=== PATIENT | female | born 1985 | race Hispanic/Latino ===

== ENCOUNTER 2018-02-23 22:00 | Emergency (ER) | payer BC ==
[2018-02-23 22:58] LABS: Urine Blood NEGATIVE (NEG); Urine Glucose NEGATIVE (NEG); Urine Protein TRACE (NEG); Urine Specific Gravity >1.030 (1.005-1.030)
[2018-02-23] MEDS ORDERED: IBUPROFEN 400 MG TAB ONE (23:27)
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
[2018-02-24 00:26] VITALS: TEMP 97.9
[2018-02-24 00:28] VITALS: BP 142/95; O2SAT 97
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
== END 2018-02-24 00:21 | disposition home or self-care (01) ==
LOC: ER 22:00
DX: M54.2 Cervicalgia (principal); V59.50XA Passenger in pick-up truck or van injured in collision with unspecified motor vehicles in traffic accident, initial encounter; Z72.0 Tobacco use; Z88.0 Allergy status to penicillin
CPT/HCPCS: 72040; 81003; 81025; 99284

== ENCOUNTER 2020-05-13 11:03 | Emergency (ER) | payer BC ==
[2020-05-13] MEDS ORDERED: NA CHLORIDE 0.9% 1,000 ML ONE (13:36)
[2020-05-13] MEDS ORDERED: ONDANSETRON 4 MG/2 ML VIAL ONE (13:36)
--- NOTE | 2020-05-13 13:46 | RAD REPORT ---
EXAM DESCRIPTION: RAD - Chest Single View - 05/13/2020 1:35 pm CLINICAL HISTORY: shortness of breath Chest pain. COMPARISON: Chest Single View dated 08/02/2017; CHEST PA AND LAT 2 VIEW dated 04/25/2012 FINDINGS: Portable technique limits examination quality. The lungs are grossly clear. The heart is normal in size. No displaced fractures. IMPRESSION: No acute intrathoracic process suspected.
[2020-05-13 13:50] LABS: Absolute Lymphocytes (CBC) 1.2 K/uL (0.7-4.9); Basophils % 0.6 % (0-1.3); Hematocrit 43.8 % (36.0-45.0); MPV 7.6 fL (7.6-11.3); RBC Red Blood Cell Count 5.27 M/uL (3.86-4.86)
[2020-05-13 14:12] LABS: Bilirubin Total 0.2 mg/dL (0.2-1.0); Potassium 3.5 mmol/L (3.5-5.1); Protein, Total 8.5 g/dL (6.4-8.2)
--- NOTE | 2020-05-13 15:31 | RAD REPORT ---
EXAM DESCRIPTION: CT - Chest For Pe Angio - 05/13/2020 3:19 pm CLINICAL HISTORY: Chest pain. chest pain, shortness of breath COMPARISON: No comparisons TECHNIQUE: CT angiogram of the pulmonary arteries was performed with MIP. All CT scans are performed using dose optimization technique as appropriate and may include automated exposure control or mA/KV adjustment according to patient size. FINDINGS: No evidence of pulmonary thromboembolism. Dilatation of the ascending aorta is present measuring 4.5 cm. The lungs are clear. No significant pericardial or pleural fluid. No concerning bony finding. IMPRESSION: No evidence of pulmonary thromboembolism. Ascending aortic aneurysm measuring 4.5 cm in transverse dimension without acute process seen.
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
--- NOTE | 2020-05-13 16:17 | ER ---
Nurse's Notes [facility] Name: Liz Winkler Age: 34 yrs Sex: Female : 1985 Arrival Date: 05/13/2020 Time: 11:05 Bed 16 Private MD: Jany Tristan K Diagnosis: Viral Respiratory Infection Presentation: 05/13 11:23 Chief complaint: Sinus pressure, chest congestion, subjective fever, and cough x 1 week hb Brother tested positive for Flu A. 11:24 Coronavirus screen: Patient reports shortness of breath or difficulty breathing. mask hb on pt. Ebola Screen: No symptoms or risks identified at this time. Initial Sepsis Screen: Does the patient meet any 2 criteria? No. Patient's initial sepsis screen is negative. Does the patient have a suspected source of infection? No. Patient's initial sepsis screen is negative. Risk Assessment: Do you want to hurt yourself or someone else? Patient reports no desire to harm self or others. Onset of symptoms was May 13, 2020. 11:24 Method Of Arrival: Wheelchair hb 11:24 Acuity: DINO 3 hb Historical: - Allergies: 11:34 PENICILLINS; hb - PMHx: 13:51 possibly pericarditis-unknown (swelling to lining of heart) (2013); toenail infection; hb - PSHx: 13:51 ectopic 2018; hb - Immunization history:: Adult Immunizations up to date. - Social history:: Smoking status: Patient denies any tobacco usage or history of. Screenin:15 Abuse screen: Denies threats or abuse. Denies injuries from another. Nutritional hb screening: No deficits noted. Tuberculosis screening: No symptoms or risk factors identified. Fall Risk None identified. Assessment: 13:25 General: Appears in no apparent distress. uncomfortable, well groomed, well developed, sv Behavior is calm, cooperative, appropriate for age. General: Reports chills for. Pain: Complains of pain in chest Pain currently is 4 out of 10 on a pain scale. Quality of pain is described as sharp, Is intermittent. Neuro: Level of Consciousness is awake, alert, obeys commands, Oriented to person, place, time, situation, Moves all extremities. Full function Gait is steady, Speech is normal. Respiratory: Airway is patent Respiratory effort is even, unlabored, Respiratory pattern is regular, symmetrical. Derm: Skin is intact, Skin is pink, warm \T\ dry. 13:30 Reassessment: COVID obtained. hb 15:00 Reassessment: Patient appears in no apparent distress at this time. No changes from sv previously documented assessment. Patient and/or family updated on plan of care and expected duration. Pain level reassessed. Patient is alert, oriented x 3, equal unlabored respirations, skin warm/dry/pink. 16:58 Reassessment: Patient appears in no apparent distress at this time. No changes from sv previously documented assessment. Patient and/or family updated on plan of care and expected duration. Pain level reassessed. Patient is alert, oriented x 3, equal unlabored respirations, skin warm/dry/pink. Vital Signs: 11:23 BP 131 / 98; Pulse 100; Resp 16; Temp 97.3; Pulse Ox 100% on R/A; Weight 74.84 kg; hb Height 5 ft. 2 in. (157.48 cm); Pain 4/10; 13:51 BP 113 / 89; Pulse 67; Resp 18; Pulse Ox 98% ; hb 14:43 BP 133 / 97; Pulse 70; Resp 18; Temp 97.9(O); Pulse Ox 100% on R/A; mh5 11:23 Body Mass Index 30.18 (74.84 kg, 157.48 cm) hb ED Course: 11:05 Patient arrived in ED. as 11:05 Jany Tristan MD is Private Physician. as 11:26 Triage completed. hb 11:34 Arm band placed on. hb 12:31 Ghada Jenkins RN is Primary Nurse. sv 12:34 Yordy Carbajal PA is PHCP. jmm 12:34 Juancarlos Toscano MD is Attending Physician. jm 13:04 EKG done, by automotive service technician. reviewed by Yordy BERRIOS. at1 13:15 Patient has correct armband on for positive identification. Bed in low position. Call hb light in reach. Pulse ox on. NIBP on. Door closed. Warm blanket given. Head of bed elevated. 13:15 First set of blood cultures drawn by me. hb 13:30 Second set of blood cultures drawn by me. Flu and/or RSV swab sent to lab. Strep swab hb sent to lab. Inserted saline lock: 20 gauge in left antecubital area, using aseptic technique. Blood collected. Flushed left antecubital with 5 ml normal saline. 13:36 Chest Single View XRAY In Process Unspecified. EDMS 14:47 Throat Culture Sent. sv 15:30 CT Chest For PE Angio In Process Unspecified. EDMS 16:16 Jany Tristan MD is Referral Physician. [facility] 16:50 Health Dept notified/ PUI # [id number]/ Nemo in lab notified. eb 16:58 No provider procedures requiring assistance completed. IV discontinued, intact, sv bleeding controlled, No redness/swelling at site. Pressure dressing applied. 19:10 Primary Nurse role handed off by Ghada Jenkins RN sv Administered Medications: 13:35 Drug: NS 0.9% 1000 ml Route: IV; Rate: 1000 ml; Site: left antecubital; hb 14:30 Follow up: Response: No adverse reaction; IV Status: Completed infusion; IV Intake: sv 1000ml 13:35 Drug: Zofran (Ondansetron) 4 mg Route: IVP; Site: left antecubital; hb 14:00 Follow up: Response: No adverse reaction sv Intake: 14:30 IV: 1000ml; Total: 1000ml. sv Outcome: 16:16 Discharge ordered by . [facility] 16:59 Discharged to home ambulatory. sv 16:59 Condition: stable 16:59 Discharge instructions given to patient, Instructed on discharge instructions, follow up and referral plans. continue to quarantine until results are obtained. Demonstrated understanding of instructions, follow-up care. 16:59 Patient left the ED. sv Addendum: 05/15/2020 17:00 Addendum: Other Pt informed of positive COVID-[address] Wright. a a5 Signatures: Dispatcher [employer] EDMS Ghada Jenkins, GURPREET RN Yordy Webber PA PA jmm Martinez, Amelia as Calderon, Audri RN RN [email or web address] Eulalia Barillas, disability advocate EKG Tat1 [place] Smart RN RN hb Martinez, Maria Jeny Robertson Corrections: (The following items were deleted from the chart) 05/13 11:26 11:22 Chief complaint: hb hb 11:26 11:22 Chief complaint: SOB x 2 months, worse at night. Daughter reports she can't sleep hb and she is due for a heart cath, does not feel like she is safe at night due to breathing difficulty. Chief complaint: SOB x 2 months, worse at night. Daughter reports she can't sleep and she is due for a heart cath, does not feel like she is safe at night due to breathing difficulty. hb 11:26 11:24 BP 147 / 55; Pulse 60bpm; Resp 16bpm; Pulse Ox 96% RA; Temp 97.4F; 64.86 kg; hb Height 5 ft. 3 in.; BMI: 25.3; Pain 0/10; hb
[2020-05-13 17:09] VITALS: BP 133/97; TEMP 97.9; O2SAT 100
[2020-05-13 19:01] LABS: Urine Blood 2+ (NEG); Urine Glucose NEGATIVE (NEG); Urine Protein NEGATIVE (NEG)
--- NOTE | 2020-05-14 10:56 | EKG ---
Test Date: 2020-05-13 Test Time: 12:44:32 Blade Sharpener: WOLF MEASUREMENT RESULTS: Intervals: Rate: 81 VA: 146 QRSD: 76 QT: 372 QTc: 432 [place]: P: 51 VA: 146 QRS: 19 T: 44 INTERPRETIVE STATEMENTS: Normal sinus rhythm Normal ECG Compared to ECG 03/15/2019 11:02:53 Sinus bradycardia no longer present Sinus arrhythmia no longer present Electronically Signed On 05-14-20 10:56:02 CDT by Mode Curtis
== END 2020-05-13 16:59 | disposition home or self-care (01) ==
LOC: ER 11:03
DX: U07.1 COVID-19 (principal); J98.8 Other specified respiratory disorders; Z88.0 Allergy status to penicillin
CPT/HCPCS: 96361; 93005; 87040 ×2; 87070; 85025; 36415; 81025; 87081; 83605; 81003; 84484; 80053; 84145; 87804 ×2; 71275; 71045; 96374; 99284; Q9967; J7030; J2405

== ENCOUNTER 2021-02-04 18:27 | Emergency (ER) | payer BC, SELFPAY ==
[2021-02-04] MEDS ORDERED: LABETALOL 20 MG/4ML SYRINGE IV ONE (20:46)
[2021-02-04 20:53] LABS: Absolute Lymphocytes (CBC) 2.1 K/uL (0.7-4.9); Basophils % 0.9 % (0-1.3); Hematocrit 39.2 % (36.0-45.0); Lymphocytes % 24.1 % (15.3-44.8); RBC Red Blood Cell Count 4.69 M/uL (3.86-4.86)
[2021-02-04 21:01] LABS: Protime INR 0.94
--- NOTE | 2021-02-04 21:08 | RAD REPORT ---
EXAM DESCRIPTION: Charo Single View02/04/2021 8:27 pm CLINICAL HISTORY: Chest pain COMPARISON: April 2020 FINDINGS: The lungs appear clear of acute infiltrate. The heart is normal size . Ascending thoracic aortic aneurysm is without obvious change
[2021-02-04 21:22] LABS: ALT/SGPT 23 U/L (12-78); AST/SGOT 15 U/L (15-37); Albumin 3.8 g/dL (3.4-5.0); Alkaline Phosphatase 84 U/L (45-117); BUN Blood Urea Nitrogen 12 mg/dL (7-18); Bicarbonate 26 mmol/L (21-32); Bilirubin Direct < 0.1 mg/dL (0-0.2); Bilirubin Total 0.2 mg/dL (0.2-1.0); Glucose Level 99 mg/dL (74-106); Magnesium 2.3 mg/dL (1.8-2.4); NT PRO-BNP 24 pg/mL (<125); Potassium 4.1 mmol/L (3.5-5.1); Sodium Level 142 mmol/L (136-145); Troponin (Emerg Dept Use Only) < 0.02 ng/mL (0.0-0.045)
[2021-02-04] MEDS ORDERED: HYDRALAZINE HCL 20 MG/ML VIAL ONE (23:28)
--- NOTE | 2021-02-05 00:27 | ER ---
Nurse's Notes [facility] Name: Liz Winkler Age: 35 yrs Sex: Female : 1985 Arrival Date: 02/04/2021 Time: 18:29 Bed 6 Private MD: Diagnosis: Aneurysm of aorta in diseases classified elsewhere;Hypertesesive urgency Presentation: 02/04 18:38 Chief complaint: Patient states: i feel a lot of pressure on my chest it has been going tw2 on and off for a couple of weeks, i have an aortic aneurysm, i see Dr. Macias, i am under a great deal of stress and i think it is triggering my chest pressure, when it happens i feel a bit sob and agitated and dizzy like i feel tightening in my neck and shoulders. Coronavirus screen: At this time, the client does not indicate any symptoms associated with coronavirus-19. Ebola Screen: No symptoms or risks identified at this time. Initial Sepsis Screen: Does the patient meet any 2 criteria? No. Patient's initial sepsis screen is negative. Does the patient have a suspected source of infection? No. Patient's initial sepsis screen is negative. Risk Assessment: Do you want to hurt yourself or someone else? Patient reports no desire to harm self or others. Onset of symptoms was February 04, 2021. 18:38 Method Of Arrival: Ambulatory tw2 18:38 Acuity: DINO 2 tw2 Triage Assessment: 18:41 General: Appears in no apparent distress. Behavior is anxious. Pain: Complains of pain tw2 in chest. Cardiovascular: Reports chest pain, shortness of breath. Historical: - Allergies: 18:41 PENICILLINS; tw2 - Home Meds: 18:41 Bactrim DS Oral [Active]; tw2 - PMHx: 18:41 possibly pericarditis-unknown (swelling to lining of heart) (2013); toenail infection; tw2 - PSHx: 18:41 ectopic 2018; tw2 - Immunization history:: Adult Immunizations. - Social history:: Smoking status: Patient reports the use of cigarette tobacco products, "couple of cigarettes ". Screenin:37 Abuse screen: Denies threats or abuse. Nutritional screening: No deficits noted. ea Tuberculosis screening: No symptoms or risk factors identified. Fall Risk IV access (20 points). Assessment: 20:15 General: Appears uncomfortable, Behavior is appropriate for age. Pain: Complains of ea pain in anterior aspect of left upper chest and left breast Pain does not radiate. Neuro: Level of Consciousness is awake, alert, obeys commands, Oriented to person, place, time. Cardiovascular: Patient's skin is warm and dry. Respiratory: Airway is patent Respiratory effort is even, unlabored, Respiratory pattern is regular, symmetrical. Derm: Skin is pink, warm \\T\\ dry. 21:35 Reassessment: Pt taken to CT. ea 22:36 Reassessment: Patient appears in no apparent distress at this time. Patient and/or rr5 family updated on plan of care and expected duration. Pain level reassessed. Patient is alert, oriented x 3, equal unlabored respirations, skin warm/dry/pink. 23:17 Reassessment: Patient and/or family updated on plan of care and expected duration. Pain ea level reassessed. Patient is alert, oriented x 3, equal unlabored respirations, skin warm/dry/pink. Awaiting for repeat trop results. Vital Signs: 18:38 BP 130 / 98; Pulse 81; Resp 17; Temp 97.8(TE); Pulse Ox 97% on R/A; Weight 77.11 kg tw2 (R); Height 5 ft. 2 in. (157.48 cm); Pain 8/10; 20:18 BP 185 / 116; Pulse 71; Resp 18; Pulse Ox 98% ; ea 21:00 BP 146 / 98; Pulse 61; Resp 18; Pulse Ox 98% ; ea 22:36 BP 149 / 92; Pulse 62; Resp 16; Pulse Ox 98% ; rr5 23:18 BP 159 / 104; Pulse 63; Resp 20; Pulse Ox 98% ; ea 03 00:30 BP 124 / 98; Pulse 60; Resp 19; Temp 97.9; Pulse Ox 98% ; ea 02/04 18:38 Body Mass Index 31.09 (77.11 kg, 157.48 cm) tw2 ED Course: 02/04 18:29 Patient arrived in ED. am2 18:36 Arm band placed on. tw2 18:41 Triage completed. tw2 18:42 Patient maintains SpO2 saturation greater than 95% on room air. tw2 19:55 Arun Zaman MD is Attending Physician. tw4 20:15 Christin Hunter, RN is Primary Nurse. ea 20:15 Inserted saline lock: 20 gauge in right antecubital area, using aseptic technique. ea Blood collected. 20:37 Patient has correct armband on for positive identification. Bed in low position. Call ea light in reach. Side rails up X2. fountain worker on. 20:37 No provider procedures requiring assistance completed. ea 23:13 CT Aorta for Dissection In Process Unspecified. EDMS 02/05 00:25 Adalgisa Ochoa MD is Referral Physician. tw4 00:25 Ilya Barrera MD is Referral Physician. tw4 00:25 Mode Curtis MD is Referral Physician. tw4 00:40 IV discontinued, intact, bleeding controlled, No redness/swelling at site. Pressure ea dressing applied. Administered Medications: 02/04 20:36 Drug: Labetalol 10 mg Route: IVP; Infused Over: 2 mins; Site: right antecubital; ea 22:45 Follow up: Response: No adverse reaction ea 23:17 Drug: hydrALAZINE 10 mg Route: IV; Rate: bolus; Site: right antecubital; ea 02/05 00:40 Follow up: IV Status: Completed infusion ea Outcome: 00:26 Discharge ordered by . tw4 00:41 Discharged to home ambulatory. ea 00:41 Condition: stable 00:41 Discharge instructions given to patient, Instructed on discharge instructions, follow up and referral plans. Demonstrated understanding of instructions, follow-up care. 00:44 Patient left the ED. ea Signatures: Dispatcher [employer] EDNV Shikha Tam RN RN tw2 Eulalia Kevin am2 Christin Hunter RN RN ea Wadley, Terrence, MD MD tw4 Suman Jesus RN RN rr5 Corrections: (The following items were deleted from the chart) 02/04 19:17 18:38 Pulse 81bpm; Resp 17bpm; Pulse Ox 97% RA; Temp 97.8F Temporal; 77.11 kg Reported; tw2 Height 5 ft. 2 in.; BMI: 31.0; Pain 8/10; tw2
--- NOTE | 2021-02-05 00:27 | EDPHYS ---
Physician Documentation [facility] Name: Liz Winkler Age: 35 yrs Sex: Female : 1985 Arrival Date: 02/04/2021 Time: 18:29 Bed 6 Private MD: ED Physician Arun Zaman HPI: 02/04 20:22 This 35 yrs old Female presents to ER via Ambulatory with complaints of Chest tw4 Pain, Blurred Vision. 20:22 The patient or guardian reports chest pain that is located primarily in the epigastric tw4 area, anterior chest wall. The pain does not radiate. Historical: - Allergies: 18:41 PENICILLINS; tw2 - Home Meds: 18:41 Bactrim DS Oral [Active]; tw2 - PMHx: 18:41 possibly pericarditis-unknown (swelling to lining of heart) (2013); toenail infection; tw2 - PSHx: 18:41 ectopic 2018; tw2 - Immunization history:: Adult Immunizations. - Social history:: Smoking status: Patient reports the use of cigarette tobacco products, "couple of cigarettes ". ROS: 22:05 Constitutional: Negative for fever, chills, and weight loss, Eyes: Negative for injury, tw4 pain, redness, and discharge, Respiratory: Negative for shortness of breath, cough, wheezing, and pleuritic chest pain, Abdomen/GI: Negative for abdominal pain, nausea, vomiting, diarrhea, and constipation, Back: Negative for injury and pain, MS/Extremity: Negative for injury and deformity, Skin: Negative for injury, rash, and discoloration, Neuro: Negative for headache, weakness, numbness, tingling, and seizure. 22:05 Cardiovascular: Positive for chest pain, Negative for edema, orthopnea, palpitations, paroxysmal nocturnal dyspnea. Exam: 22:05 Constitutional: This is a well developed, well nourished patient who is awake, alert, tw4 and in no acute distress. Head/Face: Normocephalic, atraumatic. Chest/axilla: Normal chest wall appearance and motion. Nontender with no deformity. No lesions are appreciated. Cardiovascular: Regular rate and rhythm with a normal S1 and S2. No gallops, murmurs, or rubs. Normal PMI, no JVD. No pulse deficits. Respiratory: Lungs have equal breath sounds bilaterally, clear to auscultation and percussion. No rales, rhonchi or wheezes noted. No increased work of breathing, no retractions or nasal flaring. Abdomen/GI: Soft, non-tender, with normal bowel sounds. No distension or tympany. No guarding or rebound. No evidence of tenderness throughout. Back: No spinal tenderness. No costovertebral tenderness. Full range of motion. Skin: Warm, dry with normal turgor. Normal color with no rashes, no lesions, and no evidence of cellulitis. MS/ Extremity: Pulses equal, no cyanosis. Neurovascular intact. Full, normal range of motion. Neuro: Awake and alert, GCS 15, oriented to person, place, time, and situation. Cranial nerves II-XII grossly intact. Motor strength 5/5 in all extremities. Sensory grossly intact. Cerebellar exam normal. Normal gait. Vital Signs: 18:38 BP 130 / 98; Pulse 81; Resp 17; Temp 97.8(TE); Pulse Ox 97% on R/A; Weight 77.11 kg tw2 (R); Height 5 ft. 2 in. (157.48 cm); Pain 8/10; 20:18 BP 185 / 116; Pulse 71; Resp 18; Pulse Ox 98% ; ea 21:00 BP 146 / 98; Pulse 61; Resp 18; Pulse Ox 98% ; ea 22:36 BP 149 / 92; Pulse 62; Resp 16; Pulse Ox 98% ; rr5 23:18 BP 159 / 104; Pulse 63; Resp 20; Pulse Ox 98% ; ea 02/05 00:30 BP 124 / 98; Pulse 60; Resp 19; Temp 97.9; Pulse Ox 98% ; ea 02/04 18:38 Body Mass Index 31.09 (77.11 kg, 157.48 cm) tw2 MDM: 02/04 19:55 Patient medically screened. tw4 02/05 04:54 Data reviewed: vital signs, nurses notes, old medical records, lab test result(s), tw4 cardiac enzymes, CBC, electrolytes, hepatic panel, radiologic studies, CT scan, plain films. Data interpreted: Pulse oximetry: Interpretation:. Counseling: I had a detailed discussion with the patient and/or guardian regarding: the historical points, exam findings, and any diagnostic results supporting the discharge/admit diagnosis, lab results, radiology results, the need for outpatient follow up, a sports manager, cardiothoracic. Special discussion: I discussed with the patient/guardian in detail that at this point there is no indication for admission to the hospital. It is understood, however, that if the symptoms persist or worsen the patient needs to return immediately for re-evaluation. 02/04 19:24 Order name: Basic Metabolic Panel 02/04 19:24 Order name: CBC with Diff 02/04 19:24 Order name: LFT's 02/04 19:24 Order name: Magnesium 02/04 19:24 Order name: NT PRO-BNP 02/04 19:24 Order name: PT-INR 02/04 19:24 Order name: Troponin (emerg Dept Use Only) 02/04 21:01 Order name: CBC with Automated Diff; Complete Time: 22:02 EDMS 02/04 22:03 Interpretation: Within normal limits. 02/04 21:06 Order name: Protime (+INR); Complete Time: 22:02 EDMS 02/04 22:03 Interpretation: Within normal limits: PT 10.8. 02/04 21:23 Order name: Basic Metabolic Panel; Complete Time: 22:02 EDMS 02/04 22:02 Interpretation: Normal except: CL 110; GFR 79. 02/04 21:23 Order name: Liver (Hepatic) Function; Complete Time: 22:02 EDMS 02/04 22:03 Interpretation: Normal except: A/G 0.9; GLOB 4.2. 02/04 21:23 Order name: Troponin (Emerg Dept Use Only); Complete Time: 22:02 EDMS 02/04 22:03 Interpretation: Within normal limits: TROPED < 0.02. 02/04 21:23 Order name: NT PRO-BNP; Complete Time: 22:02 EDMS 02/04 22:03 Interpretation: Within normal limits: NT PRO-BNP 24. 02/04 21:23 Order name: Magnesium; Complete Time: 22:02 EDMS 02/04 22:04 Interpretation: Within normal limits: MG 2.3. 02/04 19:24 Order name: XRAY Chest (1 view) 02/04 19:24 Order name: EKG; Complete Time: 19:26 tw4 02/04 19:24 Order name: Cardiac monitoring; Complete Time: 20:15 tw4 02/04 19:24 Order name: EKG - Nurse/Tech; Complete Time: 20:15 02/04 19:24 Order name: IV Saline Lock; Complete Time: 20:15 tw4 02/04 19:24 Order name: Labs collected and sent; Complete Time: 20:19 tw4 02/04 19:24 Order name: O2 Per Protocol; Complete Time: 20:19 tw4 02/04 19:24 Order name: O2 Sat Monitoring; Complete Time: 20:19 tw4 02/04 20:08 Order name: CT Aorta for Dissection tw02/04 21:09 Order name: RAD; Complete Time: 22:02 EDMS 02/04 22:03 Interpretation: No acute disease except. tw02/04 22:54 Order name: Troponin (emerg Dept Use Only) 02/04 23:22 Order name: SARS-COV-2 RT PCR EDMS EC/10 22:05 Rate is 72 beats/min. Rhythm is regular, Normal Sinus Rhythm. QRS [place] is Normal. [place] tw4 interval is normal. QRS interval is normal. QT interval is normal. No Q waves. T waves are Flattened in lead III. No ST changes noted. Clinical impression: NSR w/ Non-specific ST/T Changes. Interpreted by me. Reviewed by me. Administered Medications: 20:36 Drug: Labetalol 10 mg Route: IVP; Infused Over: 2 mins; Site: right antecubital; ea 22:45 Follow up: Response: No adverse reaction ea 23:17 Drug: hydrALAZINE 10 mg Route: IV; Rate: bolus; Site: right antecubital; ea 02/05 00:40 Follow up: IV Status: Completed infusion ea Disposition: 02/05/21 00:26 Discharged to Home. Impression: Aneurysm of aorta in diseases classified elsewhere, Hypertesesive urgency. - Condition is Stable. - Discharge Instructions: Abdominal Aortic Aneurysm, Hypertension. - Medication Reconciliation Form, Thank You Letter, Antibiotic Education, Prescription Opioid Use form. - Follow up: Private Physician; When: Upon discharge from the Emergency Department; Reason: Recheck today's complaints, Continuance of care, Re-evaluation by your physician. Follow up: Adalgisa Ochoa MD; When: Upon discharge from the Emergency Department; Reason: Recheck today's complaints, Continuance of care, Re-evaluation by your physician. Follow up: Ilya Barrera MD; When: Upon discharge from the Emergency Department; Reason: Recheck today's complaints, Continuance of care, Re-evaluation by your physician. Follow up: Mode Curtis MD; When: Upon discharge from the Emergency Department; Reason: Recheck today's complaints, Continuance of care, Re-evaluation by your physician. - Problem is an ongoing problem. - Symptoms are unchanged. Signatures: Dispatcher [employer] EDShikha Miller RN RN tw2 Christin Hunter RN RN Arun Hernandez MD MD tw4 Corrections: (The following items were deleted from the chart) 00:44 00:26 02/05/2021 00:26 Discharged to Home. Impression: Aneurysm of aorta in diseases ea classified elsewhere; Hypertesesive urgency. Condition is Stable. Forms are Medication Reconciliation Form, Thank You Letter, Antibiotic Education, Prescription Opioid Use. Follow up: Private Physician; When: Upon discharge from the Emergency Department; Reason: Recheck today's complaints, Continuance of care, Re-evaluation by your physician. Follow up: Adalgisa Ochoa; When: Upon discharge from the Emergency Department; Reason: Recheck today's complaints, Continuance of care, Re-evaluation by your physician. Follow up: Ilya Barrera; When: Upon discharge from the Emergency Department; Reason: Recheck today's complaints, Continuance of care, Re-evaluation by your physician. Follow up: Mode Curtis; When: Upon discharge from the Emergency Department; Reason: Recheck today's complaints, Continuance of care, Re-evaluation by your physician. Problem is an ongoing problem. Symptoms are unchanged. tw4
[2021-02-05 02:58] VITALS: TEMP 97.8
[2021-02-05 02:59] VITALS: O2SAT 98
[2021-02-05 03:19] VITALS: BP 159/104
--- NOTE | 2021-02-05 05:12 | EKG ---
Test Date: 2021-02-04 Test Time: 18:47:05 Sales Warehouse Driver: DEISY MEASUREMENT RESULTS: Intervals: Rate: 72 IA: 144 QRSD: 70 QT: 390 QTc: 427 [place]: P: 37 IA: 144 QRS: 8 T: 28 INTERPRETIVE STATEMENTS: Normal sinus rhythm Possible Anterior infarct, age undetermined Abnormal ECG Compared to ECG 05/13/2020 12:44:32 Myocardial infarct finding now present Electronically Signed On 02-05-21 05:11:10 AIRPORT LOCATION MANAGER by Mode Curtis
--- NOTE | 2021-02-05 10:45 | RAD REPORT ---
EXAM DESCRIPTION: CT - Angio Aorta For Dissection - 02/05/2021 6:53 am RadLex: CT CHEST ABDOMEN PELVIS ANGIOGRAPHY WITH IV CONTRAST CLINICAL HISTORY: Hx of aortic aneurysm. COMPARISON: CT of the abdomen and pelvis from September 11, 2014. CTA of the chest from May 13, 2020. TECHNIQUE: CTA of the chest, abdomen, and pelvis was performed following intravenous administration of iodinated contrast. Oral contrast was not administered. Axial, coronal, and sagittal soft tissue w indow reconstructions were created and sent to PACS. 3D reconstructions were created on an independent workstation and sent to PACS for evaluation. This exam was performed according to our departmental dose-optimization program, which includes autom ated exposure control, adjustment of the mA and/or kV according to patient size and/or use of iterati ve reconstruction technique. FINDINGS: Vascular: Mild aneurysmal dilation of the ascending aorta, including at the sinotubular ju nction. The mid ascending aorta measures up to 4 cm in diameter, on this nongated exam. This is not s ignificantly changed from the prior exam. Normal caliber aortic arch and descending thoracic aorta. N ormal caliber abdominal aorta. No dissection or flow-limiting stenosis. No central pulmonary embolism . The major visceral vessels are patent, with no flow limiting stenosis. Single bilateral renal arter ies. Lungs and pleura: No pulmonary consolidation. No pleural effusion. No pneumothorax. Mediastinum and neck: No mediastinal lymphadenopathy identified by CT size criteria. Unremarkable rosalie earance of the thyroid gland. Cardiac: No cardiomegaly or pericardial effusion. Hepatobiliary: No concerning hepatic lesion identified. The hepatic and portal veins are patent. The gallbladder is unremarkable. No biliary ductal dilatation. Pancreas: Unremarkable. Spleen: Unremarkable. Gastrointestinal: No evidence of bowel obstruction or perienteric inflammation. The appendix is johnathan l. Adrenals: No abnormality identified in either adrenal gland. Renal: No concerning parenchymal abnormality in either kidney. No hydronephrosis or urolithiasis. Bladder/Reproductive: Unremarkable appearance of the urinary bladder by CT technique. Left ovarian co rpus luteum cyst. Lymphatics: No lymphadenopathy identified by CT size criteria. Musculoskeletal: No concerning osseous lesion identified. Fluid / peritoneum: No significant free fluid. No free intraperitoneal air identified. IMPRESSION: 1. No significant interval change in the mild ascending aortic aneurysm since April 0. 2. No evidence of aortic dissection. 3. No abdominal aortic aneurysm. 4. Clear lungs. No concerning abdominopelvic abnormality. Electronically signed by: Lindsay Cordero MD 02/04/2021 10:08 PM MANAGER SOLAR Due to temporary technical issues with the PACS/Fluency reporting system, reports are being signed by the in house radiologist without review as a courtesy to ensure prompt reporting. The interpreting r adiologist is fully responsible for the content of the report.
== END 2021-02-05 00:44 | disposition home or self-care (01) ==
LOC: ER 18:27
DX: I71.4 Abdominal aortic aneurysm, without rupture (principal); I16.0 Hypertensive urgency; F17.210 Nicotine dependence, cigarettes, uncomplicated; Z20.822 Contact with and (suspected) exposure to COVID-19; Z88.0 Allergy status to penicillin
CPT/HCPCS: 36415; 71045; 71275; 74175; 80048; 80076; 83735; 83880; 84484; 85025; 85610; 93005; 96365; 96375; 99285; J0360; Q9967; U0003

== ENCOUNTER 2022-06-07 20:06 | Observation (INO) | payer OTHER, SELFPAY ==
[2022-06-07 22:38] LABS: Urine Blood Negative (Negative); Urine Glucose Negative (Negative); Urine Protein Negative (Negative); Urine Specific Gravity 1.025 (1.005-1.030); Urine pH 5.5 (5.0-7.0)
[2022-06-07 22:58] LABS: Absolute Lymphocytes (CBC) 2.7 K/uL (0.7-4.9); Hematocrit 39.7 % (36.0-45.0); MCV 82.8 fL (80-100); MPV 7.2 fL (7.6-11.3); RBC Red Blood Cell Count 4.79 M/uL (3.86-4.86)
[2022-06-07 23:05] LABS: Urine Specific Gravity/Preg 1.025 (1.005-1.030)
[2022-06-07 23:15] LABS: Potassium 3.4 mmol/L (3.5-5.1); Troponin High Sensitivity 3.3 pg/mL (<58.9)
[2022-06-08] MEDS ORDERED: MORPHINE 2 MG/ML SYR ONE (01:17)
[2022-06-08] MEDS ORDERED: ONDANSETRON 4 MG/2 ML VIAL ONE (01:17)
[2022-06-08] MEDS ORDERED: NA CHLORIDE 0.9% 1,000 ML ONE (05:59)
[2022-06-08] MEDS ORDERED: ASPIRIN 81 MG CHEWABLE TABLET ONE (05:59)
--- NOTE | 2022-06-08 06:00 | EDPHYS ---
Physician Documentation [facility] Name: Liz Winkler Age: 36 yrs Sex: Female : 1985 Arrival Date: 06/07/2022 Time: 20:16 Bed 6 Private MD: ED Physician Juancarlos Toscano HPI: 06/08 05:50 This 36 yrs old Female presents to ER via Ambulatory with complaints of Chest laurence Pain, Low Blood Pressure, High Heart Rate. 05:50 The patient or guardian reports chest pain that is located primarily in the substernal laurence area. The pain does not radiate. Associated signs and symptoms: Pertinent positives: shortness of breath. The chest pain is described as a heaviness. Duration: The patient or guardian reports a single episode, that is still ongoing. Modifying factors: The symptoms are alleviated by nothing. the symptoms are aggravated by nothing. Severity of pain: At its worst the pain was moderate in the emergency department the pain is unchanged. The patient has not experienced similar symptoms in the past. 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 - Social history:: Smoking status: Patient/guardian denies using tobacco, Smoking status: Patient reports the use of cigarette tobacco products, unknown amount. - Family history:: not pertinent. ROS: 06/08 05:50 Constitutional: Negative for fever, chills, and weight loss, Eyes: Negative for injury, laurence pain, redness, and discharge, ENT: Negative for injury, pain, and discharge, Neck: Negative for injury, pain, and swelling, Respiratory: Negative for shortness of breath, cough, wheezing, and pleuritic chest pain, Abdomen/GI: Negative for abdominal pain, nausea, vomiting, diarrhea, and constipation, Back: Negative for injury and pain, : Negative for injury, bleeding, discharge, and swelling, MS/Extremity: Negative for injury and deformity, Skin: Negative for injury, rash, and discoloration, Neuro: Negative for headache, weakness, numbness, tingling, and seizure, Psych: Negative for depression, anxiety, suicide ideation, homicidal ideation, and hallucinations, Allergy/Immunology: Negative for hives, rash, and allergies, Endocrine: Negative for neck swelling, polydipsia, polyuria, polyphagia, and marked weight changes, Hematologic/Lymphatic: Negative for swollen nodes, abnormal bleeding, and unusual bruising. Cardiovascular: Positive for chest pain, of the chest. Exam: 05:50 Constitutional: This is a well developed, well nourished patient who is awake, alert, laurence and in no acute distress. Head/Face: Normocephalic, atraumatic. Eyes: Pupils equal round and reactive to light, extra-ocular motions intact. Lids and lashes normal. Conjunctiva and sclera are non-icteric and not injected. Cornea within normal limits. Periorbital areas with no swelling, redness, or edema. ENT: Nares patent. No nasal discharge, no septal abnormalities noted. Tympanic membranes are normal and external auditory canals are clear. Oropharynx with no redness, swelling, or masses, exudates, or evidence of obstruction, uvula midline. Mucous membranes moist. Neck: Trachea midline, no thyromegaly or masses palpated, and no cervical lymphadenopathy. Supple, full range of motion without nuchal rigidity, or vertebral point tenderness. No Meningismus. Chest/axilla: Normal chest wall appearance and motion. Nontender with no deformity. No lesions are appreciated. Cardiovascular: Regular rate and rhythm with a normal S1 and S2. No gallops, murmurs, or rubs. Normal PMI, no JVD. No pulse deficits. Respiratory: Lungs have equal breath sounds bilaterally, clear to auscultation and percussion. No rales, rhonchi or wheezes noted. No increased work of breathing, no retractions or nasal flaring. Abdomen/GI: Soft, non-tender, with normal bowel sounds. No distension or tympany. No guarding or rebound. No evidence of tenderness throughout. Back: No spinal tenderness. No costovertebral tenderness. Full range of motion. Skin: Warm, dry with normal turgor. Normal color with no rashes, no lesions, and no evidence of cellulitis. MS/ Extremity: Pulses equal, no cyanosis. Neurovascular intact. Full, normal range of motion. Neuro: Awake and alert, GCS 15, oriented to person, place, time, and situation. Cranial nerves II-XII grossly intact. Motor strength 5/5 in all extremities. Sensory grossly intact. Cerebellar exam normal. Normal gait. Psych: Awake, alert, with orientation to person, place and time. Behavior, mood, and affect are within normal limits. 05:50 Musculoskeletal/extremity: Extremities: all appear grossly normal, with no appreciated pain with palpation, ROM: no acute changes, Circulation is intact in all extremities. Sensation intact. Compartment Syndrome exam of affected extremity: is normal. DVT Exam: No signs of deep vein thrombosis. no pain, no swelling, no tenderness, negative Homans' sign noted on exam, no appreciated bluish discoloration, no erythema, no increased warmth. 06:00 ECG was reviewed by the Attending Physician. [facility] Vital Signs: 06/07 22:14 BP 122 / 86; Pulse 69; Resp 18; Temp 97.6; Pulse Ox 100% ; Weight 72.57 kg; Height 5 kd3 ft. 2 in. (157.48 cm); Pain 8/10; 06/08 01:39 Pain 4/10; ke1 02:15 BP 102 / 62; Pulse 54; Resp 15; Pulse Ox 97% on R/A; Pain 2/10; ke1 03:15 BP 105 / 79; Pulse 50; Resp 12; Pulse Ox 100% on R/A; ke1 07:30 BP 108 / 70; Pulse 51; Resp 18; Pulse Ox 98% on R/A; ph 09:00 BP 101 / 78; Pulse 54; Resp 18; Pulse Ox 98% on R/A; ph 10:30 BP 106 / 68; Pulse 51; Resp 18; Pulse Ox 100% on R/A; ph 12:35 BP 104 / 70; Pulse 52; Resp 18; Temp 97.8; Pulse Ox 100% on R/A; ph 06/07 22:14 Body Mass Index 29.26 (72.57 kg, 157.48 cm) kd3 MDM: 00:07 Patient medically screened. laurence 05:54 Differential diagnosis: abnormal EKG, acute myocardial infarction, acute pericarditis, laurence anxiety, coronary artery disease chest wall pain, Cholelithiasis hiatal hernia, pancreatitis, peptic ulcer disease, pleurisy, pneumonia, pulmonary embolus, stable angina, unstable angina. HEART Score: History: Moderately Suspicious (1), ECG: Normal (0), Age: < or = 45 years (0), Risk Factors: 1 or 2 risk factors (1), [Hypertension] Troponin: < or = 1 x Normal Limit (0). The patient's deep vein thrombosis risk score was calculated as follows: Total Score: 0. This patient was found to be at low risk for a deep vein thrombosis by using the Well's assessment criteria. The patient's pulmonary embolism risk score was calculated as follows: Total Score: 0-2 points. This patient was found to be at low risk for a pulmonary embolism by using the Well's assessment criteria. DANIEL Risk Score: not applicable. Data reviewed: vital signs, nurses notes, lab test result(s), EKG, radiologic studies, CT scan, plain films. Data interpreted: bus monitor: rate is 50 beats/min, rhythm is regular. Test interpretation: by ED physician or midlevel provider: ECG, plain radiologic studies. Counseling: I had a detailed discussion with the patient and/or guardian regarding: the historical points, exam findings, and any diagnostic results supporting the discharge/admit diagnosis, lab results, radiology results, the need for further work-up and treatment in the hospital. 06/07 22:25 Order name: Basic Metabolic Panel; Complete Time: 00:07 [facility] 06/07 22:25 Order name: CBC with Diff; Complete Time: 00:07 [facility] 06/07 22:25 Order name: Troponin HS; Complete Time: 00:07 [facility] 06/07 22:39 Order name: Urine --Ancillary (enter results); Complete Time: 00:07 06/07 22:39 Order name: Urine Dipstick-Ancillary; Complete Time: 00:07 [facility] 06/08 05:49 Order name: SARS-COV-2 RT PCR (Document "Date of Onset" if Symptomatic); Complete Time: [facility] 10:37 06/07 22:25 Order name: XRAY Chest (1 view) [facility] 06/07 22:25 Order name: EKG; Complete Time: 22:26 [facility] 06/08 05:49 Order name: CT Aorta for Dissection; Complete Time: 07:29 [facility] 06/07 22:25 Order name: Cardiac monitoring; Complete Time: 22:30 [facility] 06/07 22:25 Order name: EKG - Nurse/Tech; Complete Time: 22:25 kd3 06/07 22:25 Order name: IV Saline Lock; Complete Time: 22:30 kd3 06/07 22:25 Order name: Labs collected and sent; Complete Time: 22:30 kd3 06/07 22:25 Order name: O2 Per Protocol; Complete Time: :30 kd3 06/07 22:25 Order name: O2 Sat Monitoring; Complete Time: 22:30 kd3 EC:00 Rate is 73 beats/min. Rhythm is regular. QRS [place] is Normal. NE interval is normal. QRS laurence interval is normal. QT interval is normal. No Q waves. T waves are Normal. No ST changes noted. Clinical impression: Normal ECG and No evidence of ischemia. Interpreted by me. Reviewed by me. Administered Medications: 01:16 Drug: Zofran (Ondansetron) 4 mg Route: IVP; Site: right antecubital; ke1 01:39 Follow up: Response: No adverse reaction ke1 01:17 Drug: morphine 2 mg Route: IVP; Infused Over: 4 mins; Site: right antecubital; ke1 01:39 Follow up: Pain 4/10 Adult; Response: Pain is decreased ke1 06:01 Drug: Aspirin Chewable Tablet 324 mg Route: PO; ke1 07:10 Follow up: Response: No adverse reaction ph 06:03 Drug: NS 0.9% 1000 ml Route: IV; Rate: 1 bolus; Site: right antecubital; ke1 12:52 Follow up: Response: No adverse reaction; IV Status: Completed infusion; IV Intake: ph 1000ml 06:13 Drug: Potassium Effervescent Tablet 25 mEq Route: PO; ke1 07:10 Follow up: Response: No adverse reaction ph Disposition Summary: 06/08/22 05:59 Hospitalization Ordered Hospitalization Status: Observation laurence Provider: Carlos Cruz cha Location: Telemetry/MedSurg (observation) laurence Condition: Stable laurence Problem: new laurence Symptoms: have improved laurence Bed/Room Type: Standard laurence Room Assignment: 215(06/08/22 10:51) ja1 Diagnosis - Chest pain, unspecified laurence - Hypotension, unspecified laurence - Hypokalemia laurence Forms: - Medication Reconciliation Form laurence - SBAR form laurence Signatures: Dispatcher [employer] EDJuancarlos Dover MD MD cha Aguilar, Jose, RN RN ja1 Suman Mccord MD MD rn3 Gladis Hayward RN RN kd3 Regi Dave RN RN ke1 Kim Mcmillan RN ph Corrections: (The following items were deleted from the chart) 06/07 22:19 22:17 PMHx: possibly pericarditis-unknown (swelling to lining of heart) (2014); kd3 kd3 22:17 PMHx: toenail infection; kd3 kd3 06/08 10:51 05:59 laurence vanessa
--- NOTE | 2022-06-08 06:00 | ER ---
Nurse's Notes [facility] Name: Liz Winkler Age: 36 yrs Sex: Female : 1985 Arrival Date: 06/07/2022 Time: 20:16 Bed 6 Private MD: Diagnosis: Chest pain, unspecified;Hypotension, unspecified;Hypokalemia Presentation: 06/07 22:14 Chief complaint: Patient states: I AM HAVING A LOT OF PRESSURE IN MY CHEST, IT STARTED kd3 LAST WEEK. 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 I HAD MY WISDOM TEETH REMOVED LAST WEEK AND IT DROPPED DURING THE PROCEDURE WELL SO IM NOT SURE WHAT'S GOING ON BECAUSE I HAVE HIGH BLOOD PRESSURE. Coronavirus screen: Vaccine status: Patient reports being unvaccinated. Ebola Screen: No symptoms or risks identified at this time. Initial Sepsis Screen: Does the patient meet any 2 criteria? No. Patient's initial sepsis screen is negative. Does the patient have a suspected source of infection? No. Patient's initial sepsis screen is negative. Risk Assessment: Do you want to hurt yourself or someone else? Patient reports no desire to harm self or others. Onset of symptoms was June 07, 2022. 22:14 Method Of Arrival: Ambulatory kd3 22:14 Acuity: DINO 3 kd3 Triage Assessment: 22:17 General: Appears in no apparent distress. Behavior is calm, cooperative. Pain: kd3 Complains of pain in chest. Cardiovascular: Patient's skin is warm and dry. EVALUATOR: 22:17 LMP 04/2022 kd3 Historical: - Allergies: 22:17 PENICILLINS; kd3 - Home Meds: 22:17 losartan oral [Active]; Metoprolol Tartrate Oral [Active]; kd3 - PMHx: 22:17 Hypertensive disorder; kd3 - Immunization history:: Adult Immunizations up to date. - Social history:: Smoking status: Patient/guardian denies using tobacco, Smoking status: Patient reports the use of cigarette tobacco products, unknown amount. - Family history:: not pertinent. Screenin:20 Abuse screen: Denies threats or abuse. Denies injuries from another. Nutritional kd3 screening: No deficits noted. Tuberculosis screening: No symptoms or risk factors identified. Fall Risk None identified. Assessment: 06/08 01:17 Pain: Complains of pain in chest Pain does not radiate. Pain currently is 8 out of 10 ke1 on a pain scale. 02:14 Reassessment: Patient appears in no apparent distress at this time. Patient and/or ke1 family updated on plan of care and expected duration. Pain level reassessed. Patient is alert, oriented x 3, equal unlabored respirations, skin warm/dry/pink. Patient states feeling better. Patient states symptoms have improved. 03:14 Pain: Denies pain. ke1 03:14 Reassessment: Patient appears in no apparent distress at this time. Patient and/or ke1 family updated on plan of care and expected duration. Pain level reassessed. Patient is alert, oriented x 3, equal unlabored respirations, skin warm/dry/pink. 07:30 Reassessment: Patient appears in no apparent distress at this time. Patient and/or ph family updated on plan of care and expected duration. Pain level reassessed. Patient is alert, oriented x 3, equal unlabored respirations, skin warm/dry/pink. 10:30 Reassessment: Patient appears in no apparent distress at this time. Patient and/or ph family updated on plan of care and expected duration. Pain level reassessed. Patient is alert, oriented x 3, equal unlabored respirations, skin warm/dry/pink. 12:35 Reassessment: Report called to Malissa VÁZQUEZ. Vital Signs: 06/07 22:14 BP 122 / 86; Pulse 69; Resp 18; Temp 97.6; Pulse Ox 100% ; Weight 72.57 kg; Height 5 kd3 ft. 2 in. (157.48 cm); Pain 8/10; 06/08 01:39 Pain 4/10; ke1 02:15 BP 102 / 62; Pulse 54; Resp 15; Pulse Ox 97% on R/A; Pain 2/10; ke1 03:15 BP 105 / 79; Pulse 50; Resp 12; Pulse Ox 100% on R/A; ke1 07:30 BP 108 / 70; Pulse 51; Resp 18; Pulse Ox 98% on R/A; ph 09:00 BP 101 / 78; Pulse 54; Resp 18; Pulse Ox 98% on R/A; ph 10:30 BP 106 / 68; Pulse 51; Resp 18; Pulse Ox 100% on R/A; ph 12:35 BP 104 / 70; Pulse 52; Resp 18; Temp 97.8; Pulse Ox 100% on R/A; ph 06/07 22:14 Body Mass Index 29.26 (72.57 kg, 157.48 cm) kd3 ED Course: 06/07 20:16 Patient arrived in ED. ja2 22:00 Inserted saline lock: 20 gauge in right antecubital area, using aseptic technique. ke1 22:17 Triage completed. kd3 22:17 Arm band placed on right wrist. EKG completed in triage. Results shown to MD. kd3 22:20 Patient has correct armband on for positive identification. kd3 22:52 XRAY Chest (1 view) In Process Unspecified. EDMS 06/08 00:04 Juancarlos Toscano MD is Attending Physician. laurence 00:21 Regi Dave RN is Primary Nurse. ke1 01:18 Client placed on continuous cardiac and pulse oximetry monitoring. NIBP monitoring ke1 applied. playground monitor on. Pulse ox on. NIBP on. 02:15 Regi Dave RN is Primary Nurse. ke1 05:58 Carlos Cruz MD is Hospitalizing Provider. laurence 06:18 CT Aorta for Dissection In Process Unspecified. EDMS 10:06 Primary Nurse role handed off by Regi Dave RN [id number] 11:26 Kim Mcmillan, GURPREET is Primary Nurse. ph 12:36 No provider procedures requiring assistance completed. Patient admitted, IV remains in ph place. Patient maintains SpO2 saturation greater than 95% on room air. Administered Medications: 01:16 Drug: Zofran (Ondansetron) 4 mg Route: IVP; Site: right antecubital; ke1 01:39 Follow up: Response: No adverse reaction ke1 01:17 Drug: morphine 2 mg Route: IVP; Infused Over: 4 mins; Site: right antecubital; ke1 01:39 Follow up: Pain 4/10 Adult; Response: Pain is decreased ke1 06:01 Drug: Aspirin Chewable Tablet 324 mg Route: PO; ke1 07:10 Follow up: Response: No adverse reaction ph 06:03 Drug: NS 0.9% 1000 ml Route: IV; Rate: 1 bolus; Site: right antecubital; ke1 12:52 Follow up: Response: No adverse reaction; IV Status: Completed infusion; IV Intake: ph 1000ml 06:13 Drug: Potassium Effervescent Tablet 25 mEq Route: PO; ke1 07:10 Follow up: Response: No adverse reaction ph Medication: 12:36 VIS not applicable for this client. ph Intake: 12:52 IV: 1000ml; Total: 1000ml. ph Outcome: 05:59 Decision to Hospitalize by Provider. laurence 12:37 Admitted to Med/surg accompanied by tech, room 215, with chart. ph 12:37 Condition: stable 12:37 Instructed on the need for admit. 12:53 Patient left the ED. ph Signatures: Dispatcher [employer] EDMS Juancarlos Toscano MD MD cha Hall, Patricia, RN RN ph Rossana Cedeno RN RN jlHeidy Starkey Kyli RN RN kd3 Regi Dave RN RN ke1 Corrections: (The following items were deleted from the chart) 06/07 22:19 22:17 PMHx: possibly pericarditis-unknown (swelling to lining of heart) (2014); kd3 kd3 22:19 22:17 PMHx: toenail infection; kd3 kd3
[2022-06-08] MEDS ORDERED: POTASSIUM 25 MEQ EFFERV TAB ONE (06:12)
--- NOTE | 2022-06-08 06:35 | RAD REPORT ---
EXAM DESCRIPTION: CT - Angio Aorta For Dissection - 06/08/2022 6:17 am CLINICAL HISTORY: CP COMPARISON: None. TECHNIQUE: Dynamically enhanced 3 mm thick images of the chest, abdomen, and upper pelvis were obtai aileen during administration of approximately 150mL Isovue 370 IV contrast. Sagittal and coronal reconst ruction images were generated using MIP and reviewed. Exam utilizes a protocol to evaluate entire cou rse of the aorta. All CT scans are performed using dose optimization technique as appropriate and may include automated exposure control or mA/KV adjustment according to patient size. FINDINGS: No thyroid gland or neck base abnormality. Ascending thoracic aorta is up to 3.8 cm in diameter. Motion limits optimal measurement. Aortic arch is 2.3 cm. The descending thoracic aorta and abdominal aorta show no aneurysm, dissection or suspicio us finding. Reconstruction images also show no significant finding. Pulmonary arteries are normal as well. No cardiomegaly, pericardial thickening or pericardial effusio n. No mass or infiltrate in the lung parenchyma. No pleural thickening, pleural effusion or pneumothorax . No abnormal mediastinal or hilar mass or lymphadenopathy seen. No chest wall mass or abnormal axillar y lymphadenopathy. Celiac, SMA and renal arteries show no suspicious findings. Solid abdominal viscera and bowel show no significant findings. No mass or abnormal lymphadenopathy. No free air, free fluid or inflammatory stranding. No urinary bladder abnormality. Uterus and ovaries within normal limits for age. No suspicious bone finding. IMPRESSION: No dissection or acute aortic finding. Ascending thoracic aorta is up 3.8 cm with the ao rtic arch 2.3 cm. Descending thoracic aorta and abdominal aorta unremarkable. No changes to the aorta since January 2021. No other significant findings on chest, abdomen and upper pelvis examination.
[2022-06-08] MEDS ORDERED: ONDANSETRON 4 MG/2 ML VIAL IV PRN (07:52)
[2022-06-08] MEDS ORDERED: ACETAMINOPHEN 500 MG TAB PO PRN (07:52)
[2022-06-08] MEDS ORDERED: MORPHINE 2 MG/ML SYR IV PRN (07:52)
[2022-06-08] MEDS ORDERED: NA CHLORIDE 0.9% 1,000 ML IV SCH (08:00)
--- NOTE | 2022-06-08 08:20 | EKG ---
Test Date: 2022-06-07 Test Time: 22:22:39 [place] Former: [facility] MEASUREMENT RESULTS: Intervals: Rate: 73 IA: 158 QRSD: 98 QT: 406 QTc: 447 [place]: P: 52 IA: 158 QRS: 45 T: 43 INTERPRETIVE STATEMENTS: Normal sinus rhythm Normal ECG Compared to ECG 02/04/2021 18:47:05 Myocardial infarct finding no longer present Electronically Signed On 06-08-22 08:18:13 CDT by Mode Curtis
[2022-06-08] MEDS: NA CHLORIDE 0.9% 1,000 ML IV SCH (13:16)
[2022-06-08 13:29] VITALS: BMI 28.9
[2022-06-08 13:35] LABS: Folic Acid, (Folate) 11.8 ng/mL (3.1-17.5); Magnesium 2.4 mg/dL (1.8-2.4); Thyroid Stimulating Hormone 0.949 uIU/mL (0.360-3.740)
[2022-06-08 13:47] VITALS: O2SAT 100
--- NOTE | 2022-06-08 16:20 | RAD REPORT ---
EXAM DESCRIPTION: RAD - Chest Single View - 06/07/2022 10:49 pm CLINICAL HISTORY: CHEST PAIN. COMPARISON: None. TECHNIQUE: Single view AP chest radiograph(s). FINDINGS: The lungs are clear. No pulmonary infiltrate or edema identified. No pleural effusion. N o pneumothorax. Nonenlarged cardiomediastinal silhouette. No significant osseous abnormality. IMPRESSION: No acute cardiopulmonary abnormality identified by radiograph. Electronically signed by: Lindsay Cordero MD 06/07/2022 11:14 PM CDT Due to temporary technical issues with the PACS/Fluency reporting system, reports are being signed by the in house radiologists without review as a courtesy to insure prompt reporting. The interpreting radiologist is fully responsible for the content of the report.
--- NOTE | 2022-06-08 23:19 | P.HP ---
Certification for Inpatient Patient admitted to: Observation With expected LOS: <2 Midnights Patient will require the following post-hospital care: None Practitioner: I am a practitioner with admitting privileges, knowledge of patient current condition, hospital course, and medical plan of care. Services: Services provided to patient in accordance with Admission requirements found in Title 42 Section 412.3 of the Code of Federal Regulations Patient History Date of Service: 06/08/22 Reason for admission: hypotension History of Present Illness: patient is a 36-year-old female who came to the hospital with what appears to be dehydration. Patient states she had her wisdom teeth pulled a few days ago. Since then she has not been feeling well. She did not have a lot of bleeding and did not need pain medication. However, when she arrived her BUN and creatinine are slightly elevated. She has been taking her lisinopril and her beta-harriett therapy at home. She was slightly hypotensive and bradycardic. Will go ahead and stop her beta-harriett therapy. We will also stop her lisinopril. She will be admitted for observation. Hopefully with aggressive IV hydration her blood pressure will improve can discharge home in the morning. Allergies Penicillins Allergy (Mild, Verified 09/10/14 23:36) Rash Home Medications: Losartan Potassium [Cozaar] 100 mg PO DAILY 06/08/22 Metoprolol Succinate 25 mg PO DAILY 06/08/22 - Past Medical/Surgical History Has patient received pneumonia vaccine in the past: No Diabetic: No -: htn -: aortic aneurysm -: NVD 2001 -: nvd 2007 -: NDV 2008 - Family History Mother Medical History: Hypertension, Diabetes - Social History Smoking Status: Current every day smoker Alcohol use: No CD- Drugs: No Caffeine use: Yes Review of Systems 10-point ROS is otherwise unremarkable Physical Examination - Vital Signs Temperature: 97.1 F Blood Pressure: 146/81 Pulse: 54 Respirations: 18 Pulse Ox (%): 95 - Physical Exam General: Alert, In no apparent distress, Oriented x3 HEENT: Atraumatic, PERRLA, Mucous membr. moist/pink, EOMI, Sclerae nonicteric Neck: Supple, 2+ carotid pulse no bruit, No LAD, Without JVD or thyroid abnormality Respiratory: Clear to auscultation bilaterally, Normal air movement Cardiovascular: Regular rate/rhythm, Normal S1 S2 Gastrointestinal: Normal bowel sounds, No tenderness Musculoskeletal: No tenderness Integumentary: No rashes Neurological: Normal gait, Normal speech, Normal strength at 5/5 x4 extr, Normal tone, Normal affect Lymphatics: No axilla or inguinal lymphadenopathy Assessment & Plan - Problems (Diagnosis) (1) Dehydration Current Visit: Yes Status: Acute (2) Hypotension Current Visit: Yes Status: Acute (3) Bradyarrhythmia Current Visit: Yes Status: Acute - Plan Plan: 1. Continue with aggressive IV hydration 2. Hold lisinopril and beta-harriett therapy 3. Reassess blood pressure in the morning 4. Anticipate discharge home in a.m. Discharge Plan: Home Plan to discharge in: 24 Hours - Advance Directives Does patient have a Living Will: No Does patient have a Durable POA for Healthcare: No - Code Status/Comfort Care Code Status Assessed: Yes Code Status: Full Code Critical Care: No Time Spent Managing PTS Care (In Minutes): 45
[2022-06-09] MEDS: NA CHLORIDE 0.9% 1,000 ML IV SCH (00:30)
[2022-06-09 04:09] LABS: Absolute Lymphocytes (CBC) 2.3 K/uL (0.7-4.9); Hematocrit 32.7 % (36.0-45.0); Lymphocytes % 44.4 % (15.3-44.8); MPV 7.4 fL (7.6-11.3)
[2022-06-09 04:25] LABS: Albumin 2.7 g/dL (3.4-5.0); Bilirubin Total 0.1 mg/dL (0.2-1.0); Potassium 3.7 mmol/L (3.5-5.1); Protein, Total 5.9 g/dL (6.4-8.2)
[2022-06-09 08:15] VITALS: BP 133/78; TEMP 97.4
== END 2022-06-09 11:37 | disposition home or self-care (01) ==
LOC: ER 20:06 → ERHOLD 06-08 07:52 → 2ND 06-08 12:33
PROVIDERS: ADMIT Hospitalist; ATTEND Hospitalist
DX: E86.0 Dehydration (principal); I95.9 Hypotension, unspecified; I49.8 Other specified cardiac arrhythmias; R07.9 Chest pain, unspecified; E87.6 Hypokalemia; I10 Essential (primary) hypertension; F17.210 Nicotine dependence, cigarettes, uncomplicated; Z79.899 Other long term (current) drug therapy; Z88.0 Allergy status to penicillin; Z20.822 Contact with and (suspected) exposure to COVID-19; Z82.49 Family history of ischemic heart disease and other diseases of the circulatory system; Z83.3 Family history of diabetes mellitus; Z98.890 Other specified postprocedural states
CPT/HCPCS: 36415; 71045; 71275; 74175; 80048; 80053; 81003; 81025; 82533; 82607; 82746; 83735; 84439; 84443; 84484; 85025; 93005; 96361; 96374; 96375; 99285; G0378; J2270; J2405; J7030; Q9967; U0003

== ENCOUNTER 2023-07-07 20:46 | Observation (INO) | payer SELFPAY ==
--- OUTSIDE RECORDS SUMMARY | 2023-07-07 20:50 | XMS REPORT | Continuity of Care Document ---
:1985 Author Organization [facility] t Address [address] [place] [address] [address] [place] [address] Care Team Providers Name Role Phone Jasmine Loera Primary Care Physician [phone] Problems This patient has no known problems. Allergies, Adverse Reactions, Alerts Allergy Allergy Status Severity Reaction(s) Onset Inactive Treating Comm ents Source Name Type Date Date Clinician Penicill Propensi Active in V ty to [address] adverse 00:00: m - Oral reaction 00 to drug Penicill Propensi Active ins ty to 3-16 adverse 00:00: reaction 00 to drug Medications Ordered Filled Start Stop Current Ordering Indication Dosage Frequency Signature Comments Components Source Medication Medication Date Date Medication? Clinician (SIG) Name Name TAKE 1 No TABLET BY 8-18 MOUTH ONCE 00:00: DAILY 00 TAKE 1 No TABLET BY 8-18 MOUTH ONCE 00:00: DAILY 00 losartan 2021-0 No 1mg 100 mg 3-11 tablet 00:00: 00 metoprolol 2021- No 1mg succinate 3-11 ER 25 mg 00:00: tablet,exte 00 nded release 24 hr phentermine No 1mg 37.5 mg 3-11 capsule 00:00: 00 Dose 2021-0 No Unknown 3-11 00:00: 00 Dose 2021-0 No Unknown 3-11 00:00: 00 Dose 2021-0 No Unknown 3-11 00:00: 00 Dose 2021-0 No Unknown 3-11 00:00: 00 Dose 2021-0 No Unknown 3-11 00:00: 00 Dose 2021-0 No Unknown 3-11 00:00: 00 Dose 2021-0 No Unknown 3-11 00:00: 00 Dose 2022-0 No Unknown 3-11 00:00: 00 Dose 2022-0 No Unknown 3-11 00:00: 00 Dose 2022-0 No Unknown 3-11 00:00: 00 Dose 2022-0 No Unknown 3-11 00:00: 00 Dose 2022-0 No Unknown 3-11 00:00: 00 Dose 2022-0 No Unknown 3-11 00:00: 00 Dose 2022-0 No Unknown 3-11 00:00: 00 Dose 2-0 No Unknown 3-11 00:00: 00 Dose 2-0 No Unknown 3-11 00:00: 00 Dose 2-0 No Unknown 3-11 00:00: 00 Dose 2-0 No Unknown 3-11 00:00: 00 Dose 2-0 No Unknown 3-11 00:00: 00 Dose 2-0 No Unknown 3-11 00:00: 00 Dose 2-0 No Unknown 3-11 00:00: 00 Dose 2-0 No Unknown 3-11 00:00: 00 Dose 2-0 No Unknown 3-11 00:00: 00 Dose 2-0 No Unknown 3-11 00:00: 00 losartan 2-0 No 1mg 100 mg 3-11 tablet 00:00: 00 metoprolol 2021-0 No 1mg succinate 3-11 ER 25 mg 00:00: tablet,exte 00 nded release 24 hr phentermine 2021-0 No 1mg 37.5 mg 3-11 capsule 00:00: 00 Dose 2-0 No Unknown 3-11 00:00: 00 Dose 2-0 No Unknown 3-11 00:00: 00 Dose 2-0 No Unknown 3-11 00:00: 00 Dose 2-0 No Unknown 3-11 00:00: 00 Dose 2-0 No Unknown 3-11 00:00: 00 Dose 2-0 No Unknown 3-11 00:00: 00 Dose 2-0 No Unknown 3-11 00:00: 00 Dose 2-0 No Unknown 3-11 00:00: 00 Dose 2022-0 No Unknown 3-11 00:00: 00 Dose 2022-0 No Unknown 3-11 00:00: 00 Dose 2-0 No Unknown 3-11 00:00: 00 Dose 2022-0 No Unknown 3-11 00:00: 00 Dose 2022-0 No Unknown 3-11 00:00: 00 Dose 2022-0 No Unknown 3-11 00:00: 00 Dose 2022-0 No Unknown 3-11 00:00: 00 Dose 2022-0 No Unknown 3-11 00:00: 00 Dose 2022-0 No Unknown 3-11 00:00: 00 Dose 2022-0 No Unknown 3-11 00:00: 00 Dose 2022-0 No Unknown 3-11 00:00: 00 Dose 2022-0 No Unknown 3-11 00:00: 00 Dose 2022-0 No Unknown 3-11 00:00: 00 Dose 2022-0 No Unknown 3-11 00:00: 00 Dose 2022-0 No Unknown 3-11 00:00: 00 Dose 2022-0 No Unknown 3-11 00:00: 00 losartan 1-1 No 1mg 100 mg 2-03 tablet 00:00: 00 losartan 1-1 No 1mg 100 mg 2-03 tablet 00:00: 00 losartan 2021-0 No 1mg 100 mg 9-21 tablet 00:00: 00 metoprolol 2021-0 No 1mg succinate 9-21 ER 25 mg 00:00: tablet,exte 00 nded release 24 hr escitalopra 1-0 No 1mg m 10 mg 9-21 tablet 00:00: 00 losartan 2021-0 No 1mg 100 mg 9-21 tablet 00:00: 00 famotidine 2021-0 No 1mg 40 mg 9-21 tablet 00:00: 00 hydroxyzine 2021-0 No 1mg HCl 25 mg 9-21 tablet 00:00: 00 losartan 2021-0 No 1mg 100 mg 9-21 tablet 00:00: 00 metoprolol 2021-0 No 1mg succinate 9-21 ER 25 mg 00:00: tablet,exte 00 nded release 24 hr escitalopra 2021-0 No 1mg m 10 mg 9-21 tablet 00:00: 00 losartan 2021-0 No 1mg 100 mg 9-21 tablet 00:00: 00 famotidine 2021-0 No 1mg 40 mg 9-21 tablet 00:00: 00 hydroxyzine 2021-0 No 1mg HCl 25 mg 9-21 tablet 00:00: 00 losartan 2021-0 No 1mg 100 mg 8-27 tablet 00:00: 00 metoprolol 2021-0 No 1mg succinate 8-27 ER 25 mg 00:00: tablet,exte 00 nded release 24 hr losartan 2021-0 No 1mg 100 mg 8-27 tablet 00:00: 00 metoprolol 2021-0 No 1mg succinate 8-27 ER 25 mg 00:00: tablet,exte 00 nded release 24 hr losartan 2021-0 No 1mg 100 mg 5-04 tablet 00:00: 00 metoprolol 2021-0 No 1mg succinate 5-04 ER 25 mg 00:00: tablet,exte 00 nded release 24 hr escitalopra 2021-0 No 1mg m 10 mg 5-04 tablet 00:00: 00 hydroxyzine 2021-0 No 1mg HCl 25 mg 5-04 tablet 00:00: 00 losartan 2021-0 No 1mg 100 mg 5-04 tablet 00:00: 00 metoprolol 2021-0 No 1mg succinate 5-04 ER 25 mg 00:00: tablet,exte 00 nded release 24 hr escitalopra 2021-0 No 1mg m 10 mg 5-04 tablet 00:00: 00 hydroxyzine 2021-0 No 1mg HCl 25 mg 5-04 tablet 00:00: 00 metoprolol 2021-0 No 1mg succinate 3-23 ER 25 mg 00:00: tablet,exte 00 nded release 24 hr losartan 2021-0 No 1mg 100 mg 3-23 tablet 00:00: 00 metoprolol 2021-0 No 1mg succinate 3-23 ER 25 mg 00:00: tablet,exte 00 nded release 24 hr losartan 2021-0 No 1mg 100 mg 3-23 tablet 00:00: 00 prednisone 2021-0 No 1mg 20 mg 3-23 tablet 00:00: 00 meloxicam 2021-0 No 1mg 7.5 mg 3-23 tablet 00:00: 00 cyclobenzap 2021-0 No 12mg rine 5 mg 3-23 tablet 00:00: 00 prednisone 2021-0 No 1mg 20 mg 3-23 tablet 00:00: 00 meloxicam 2021-0 No 1mg 7.5 mg 3-23 tablet 00:00: 00 cyclobenzap 2021-0 No 12mg rine 5 mg 3-23 tablet 00:00: 00 ProAir HFA 2020-0 No 12mcg/a 90 7-13 ctuatio mcg/actuati 00:00: n on aerosol 00 inhaler ProAir HFA 2020-0 No 12mcg/a 90 7-13 ctuatio mcg/actuati 00:00: n on aerosol 00 inhaler Flexeril 5 2014-0 No 1mg mg tablet 3-16 00:00: 00 Flexeril 5 2015-0 No 1mg mg tablet 3-16 00:00: 00 ibuprofen 2015-0 No 1mg 600 mg 3-16 tablet 00:00: 00 ibuprofen 2015-0 No 1mg 600 mg 3-16 tablet 00:00: 00 Flexeril 5 2015-0 No 1mg mg tablet 3-16 00:00: 00 Flexeril 5 2015-0 No 1mg mg tablet 3-16 00:00: 00 ibuprofen 2015-0 No 1mg 600 mg 3-16 tablet 00:00: 00 ibuprofen 2015-0 No 1mg 600 mg 3-16 tablet 00:00: 00 Vital Signs Vital Name Observation Time Observation Value Comments Source BP Systolic 2022-11-26 16:26:00 152 mm[Hg] BP Diastolic 2022-11-26 16:26:00 103 mm[Hg] Weight Measured 2022-11-26 16:26:00 165.20 pounds Height Measured 2022-11-26 16:26:00 63.50 inches Body Temperature 2022-11-26 16:26:00 98.60 degrees Heart Rate 2022-11-26 16:26:00 74.00 /min Respiratory Rate 2022-11-26 16:26:00 18.00 /min BP Systolic 2022-02-05 13:44:00 125 mm[Hg] BP Diastolic 2022-02-05 13:44:00 82 mm[Hg] Weight Measured 2022-02-05 13:44:00 Height Measured 2022-02-05 13:44:00 Body Temperature 2022-02-05 13:44:00 Heart Rate 2022-02-05 13:44:00 Respiratory Rate 2022-02-05 13:44:00 BP Systolic 2021 10:24:00 121 mm[Hg] BP Diastolic 2021 10:24:00 79 mm[Hg] Weight Measured 2021 10:24:00 168.00 pounds Height Measured 2021 10:24:00 63.50 inches Body Temperature 2021 10:24:00 Heart Rate 2021 10:24:00 Respiratory Rate 2021 10:24:00 BP Systolic 2021-03-31 09:37:00 127 mm[Hg] BP Diastolic 2021-03-31 09:37:00 86 mm[Hg] Weight Measured 2021-03-31 09:37:00 174.20 pounds Height Measured 2021-03-31 09:37:00 63.50 inches Body Temperature 2021-03-31 09:37:00 98.10 degrees Heart Rate 2021-03-31 09:37:00 86.00 /min Respiratory Rate 2021-03-31 09:37:00 16.00 /min BP Systolic 2021-02-17 11:38:00 153 mm[Hg] BP Diastolic 2021-02-17 11:38:00 103 mm[Hg] Weight Measured 2021-02-17 11:38:00 175.20 pounds Height Measured 2021-02-17 11:38:00 63.50 inches Body Temperature 2021-02-17 11:38:00 98.80 degrees Heart Rate 2021-02-17 11:38:00 84.00 /min Respiratory Rate 2021-02-17 11:38:00 16.00 /min BP Systolic 2015-02-10 15:00:00 128 mm[Hg] BP Diastolic 2015-02-10 15:00:00 94 mm[Hg] Weight Measured 2015-02-10 15:00:00 168.80 pounds Height Measured 2015-02-10 15:00:00 63.50 inches Body Temperature 2015-02-10 15:00:00 98.40 degrees Heart Rate 2015-02-10 15:00:00 90.00 /min Respiratory Rate 2015-02-10 15:00:00 18.00 /min Heart Rate 2015-02-10 14:55:00 90.00 /min Respiratory Rate 2015-02-10 14:55:00 18.00 /min BP Systolic 2015-02-10 14:55:00 128 mm[Hg] BP Diastolic 2015-02-10 14:55:00 94 mm[Hg] Weight Measured 2015-02-10 14:55:00 168.80 pounds Height Measured 2015-02-10 14:55:00 63.50 inches Body Temperature 2015-02-10 14:55:00 98.40 degrees Procedures This patient has no known procedures. Plan of Care Planned Activity Planned Date Details Comments Source Goal Plan of Care Note [code = 95860-4] Goal Plan of Care Note [code = 41968-1] Goal Plan of Care Note [code = 34155-0] Goal Plan of Care Note [code = 80994-5] Goal Plan of Care Note [code = 11301-5] Goal Plan of Care Note [code = 90591-1] Goal Plan of Care Note [code = 47636-7] Goal Plan of Care Note [code = 77756-5] Goal Plan of Care Note [code = 84279-8] Goal Plan of Care Note [code = 65969-6] Goal Plan of Care Note [code = 17648-7] Goal Plan of Care Note [code = 44032-9] Goal Plan of Care Note [code = 60148-3] Goal Plan of Care Note [code = 40019-2] Encounters Start End Encounter Admission Attending Care Care Encounter Source Date/Time Date/Time Type Type Clinicians Facility Department ID 2023-05-05 2023-05-05 Outpatient [facility] 023 Jd 10:06:40 10:06:40 [id number] [facility] [place] 2023-03-24 2023-03-24 Outpatient [facility] 023 Jd 15:42:02 15:42:02 0427 [facility] [place] 2022-12-23 2022-12-23 Outpatient [facility] 023 Jd 15:17:27 15:17:27 [address] [facility] 2022-11-26 2022-11-26 Outpatient [facility] 022 Jd 16:19:43 16:19:43 1230 [facility] [place] 2022-11-26 2022-11-26 Outpatient [id number] 00:00:00 00:00:00 Visit [id number] 2022-08-27 2022-08-27 Outpatient [id number] 00:00:00 00:00:00 Visit [id number] Results Test Description Test Time Test Comments Results Result Comments Source PAP TEST, THINPREP, IMAGED 2022-12-24 16:06:50 Test Item Value Reference Range Interpretation Comme nts SOURCE: (test code = Cervical/Endocervical 8001) SLIDES: (test code = 1 8011) LMP: (test code = 12/11/2022 8021) SPECIMEN ADEQUACY: (NOTE) Antony davies (test code = 86035) evaluati on. Endocervical cells/transform ation zone component prese nt. INTERPRETATION: NILM/NO EPITH. ABNORMALITY;SEE (test code = 82078) BELOW -------- NEGATIVE FOR INTRAEPITHE LIAL LESION OR MALIGNANCY ( NILM) -- CUSTOMER OPERATIONS ASSOCIATE: MARLIN George(ASCP) IAC (test code = 8101) LOCATION: (test code (NOTE) Specime ns processed and = 30297) [facility] [address] [place] [address], Phone: , CLIA: [id number] CPT: (test code = (NOTE) 30172 UNLE SS OTHERWISE 8140) INDICATED, COMP UTER AIDED AND CYTOTECHNOL OGIST SCREENING PERFO RMED. The Pap test is a scree pedro test with an inheren t, but low probability of error. Your patient should be reminded to consult you immediately if she experien cher any suspicious sign s or symptoms, regar dless of her Pap test result . An alternate repor t format containing imag es or consolidated pr ior Pap history is avai lable as applicable. CT/NG, NAAT, [id number] 16:02:42 Test Item Value Reference Range Interpretation Comments CHLAMYDIA, NAAT, NEGATIVE NEGATIVE A negative result does THINPREP (test code not excl ude low level = 49845) infection, specimensamplin g error, or collection erro r. Testing is performed wi th the [employer] systems usingre al-time Polymerase Dwayne n Reaction (PCR) method. GONORRHEA, NAAT, NEGATIVE NEGATIVE A negative result does THINPREP (test code not excl ude low level = 39315) infection, specimensamplin g error, or collection erro r. Testing is performed wi th the [employer] 680 systems usingre al-time Polymerase Dwayne n Reaction (PCR) method. HPV HIGH RISK WITH GENOTYPE, [id number] 14:10:39 Test Item Value Reference Range Interpretation Comments HPV HIGH RISK INTERP NEGATIVE NEGATIVE (test code = 77177) HPV 16 (test code = NEGATIVE 75251) HPV 18 (test code = NEGATIVE 55997) HPV, HR, OTHER NEGATIVE Testing meth odology is GENOTYPES (test code real-ti me PCR utilizing = 77124) hydrolysis prob es with the [employer] 4800 system. The aaliyah t individually de tects genotypes 16 an d 18, as well as the oth er 12 high risk types (31,33,35,39,45 ,51,52,56 ,58,59,66,68). The expected result is negative. A neg ative result does not rule out the presence of HPV not included in the genotype set, a low leve l of infection or sp ecimen sampling error. UNLESS OTHERWISE INDIC ATED, ALL TESTING PERFORM ED [facility], [place] [address] [facility] [place] [address] LABORATORY DIRE CTOR: NATACHA MELARA M.D. CLIA NUMBER [id number] [place]. [id number] LIPID [id number] 01:51:37 Test Item Value Reference Range Interpretation Comments CHOLESTEROL (test 188 MG/DL <200 code = 2210) TRIGLYCERIDES (test 201 MG/DL <150 H code = 2232) HDL CHOLESTEROL (test 38 MG/DL >39 L code = 2220) CALC LDL CHOL (test 118 MG/DL <100 H NOTE: C ALCULATED LDL code = 2237) IS BASED ON KIEL-HADLEY METHOD WHICHINCLUDES ADJUSTABLE TRIGLYCERIDE:VL DL CHOLESTEROL RAT IO.THIS FACTOR VARIES B Y MEASURED TRIGLY CERIDE AND NON-HDLCHOL ESTEROL CONCENTRATIONS WITH INCREASED CALCU LATED LDL SEENIN HIGH ER TRIGLYCERIDE OR LOWER NON-HDL SPECIME NS. FOR MOREINFORMATION , SEE CLIENT ANNOUNCE MENT AT [email or web address] RISK RATIO LDL/HDL 3.11 RATIO <3.22 UNLESS O THERWISE (test code = 2238) INDICATED , ALL TESTING PERFORMED [facility], [facility]. [address] [place] [address] DIRECTOR: NATACHA SWEENEY M.D. CLIA NUMBER [id number] CAP ACCREDITATION N O. [id number] COMPREHENSIVE METABOLIC [id number] 01:51:37 Test Item Value Reference Range Interpretation Comments GLUCOSE (test code = 99 MG/DL 70-99 2216) BUN (test code = 13 MG/DL 6-20 2207) CREATININE (test 0.76 MG/DL 0.60-1.30 code = 2214) eGFR (2020 CKD-EPI) 103 >60 (test code = 78951) ML/MIN/1.73 CALC BUN/CREAT (test 17 RATIO 6-28 code = 2235) SODIUM (test code = 141 MEQ/L 931-316 4616) POTASSIUM (test code 4.4 MEQ/L 3.5-5.4 = 2228) CHLORIDE (test code 102 MEQ/L 95-107 = 2215) CARBON DIOXIDE (test 25 MEQ/L 19-31 code = 2206) CALCIUM (test code = 9.3 MG/DL 8.5-10.5 2208) PROTEIN, TOTAL (test 7.4 G/DL 6.1-8.3 code = 2229) ALBUMIN (test code = 4.5 G/DL 3.5-5.2 2200) CALC GLOBULIN (test 2.9 G/DL 1.9-3.7 code = 2240) CALC A/G RATIO (test 1.6 RATIO 1.0-2.6 code = 2234) BILIRUBIN, TOTAL 0.3 MG/DL See_Comment [Automated message] (test code = 2207) The syste m which generated this result transmit kathy reference range : <=1.2. The refe rence range was not u sed to interpret th is result as normal/abnormal . ALKALINE PHOSPHATASE 87 U/L 40-112 (test code = 2204) AST (test code = 12 U/L 9-40 2217) ALT (test code = 13 U/L 5-40 2218) SARS-CoV-2 (COVID-19) by RT-PCR (HIGH RISK)2020-06-19 00:00:00 Test Item Value Reference Range Interpretation Comments SARS-CoV-2 INTERPRETATION (test POSITIVE code = 18134) SOURCE (test code = 59483) NOT SPECIFIED SARS-CoV-2 (COVID-19) by RT-PCR (HIGH RISK)2020-06-19 00:00:00 Test Item Value Reference Range Interpretation Comments SARS-CoV-2 INTERPRETATION (test POSITIVE code = 34921) SOURCE (test code = 96651) NOT SPECIFIED SARS-CoV-2 (COVID-19) by RT-PCR (HIGH RISK)2020-06-19 00:00:00 Test Item Value Reference Range Interpretation Comments SARS-CoV-2 INTERPRETATION (test POSITIVE code = 41677) SOURCE (test code = 85218) NOT SPECIFIED SARS-CoV-2 (COVID-19) by RT-PCR (HIGH RISK)2020-06-19 00:00:00 Test Item Value Reference Range Interpretation Comments SARS-CoV-2 INTERPRETATION (test POSITIVE code = 35324) SOURCE (test code = 79472) NOT SPECIFIED SARS-CoV-2 (COVID-19) by RT-PCR (HIGH RISK)2020-06-04 00:00:00 Test Item Value Reference Range Interpretation Comments SARS-CoV-2 INTERPRETATION (test POSITIVE code = 44868) SOURCE (test code = 31383) NOT SPECIFIED SARS-CoV-2 (COVID-19) by RT-PCR (HIGH RISK)2020-06-04 00:00:00 Test Item Value Reference Range Interpretation Comments SARS-CoV-2 INTERPRETATION (test POSITIVE code = 47840) SOURCE (test code = 23349) NOT SPECIFIED SARS-CoV-2 (COVID-19) by RT-PCR (HIGH RISK)2020-06-04 00:00:00 Test Item Value Reference Range Interpretation Comments SARS-CoV-2 INTERPRETATION (test POSITIVE code = 25402) SOURCE (test code = 29086) NOT SPECIFIED SARS-CoV-2 (COVID-19) by RT-PCR (HIGH RISK)2020-06-04 00:00:00 Test Item Value Reference Range Interpretation Comments SARS-CoV-2 INTERPRETATION (test POSITIVE code = 75985) SOURCE (test code = 24244) NOT SPECIFIED
[2023-07-07] MEDS ORDERED: MORPHINE 2 MG/ML SYR ONE (21:38)
[2023-07-07] MEDS ORDERED: LORazepam 2 MG/ML VIAL ONE (21:38)
[2023-07-07] MEDS ORDERED: ONDANSETRON 4 MG/2 ML VIAL ONE (21:39)
[2023-07-07] MEDS ORDERED: LABETALOL HCL 100 MG TAB ONE (21:39)
[2023-07-07] MEDS ORDERED: NA CHLORIDE 0.9% 1,000 ML ONE (21:40)
[2023-07-07] MEDS ORDERED: LABETALOL 20 MG/4ML SYRINGE IV ONE (21:40)
--- NOTE | 2023-07-07 21:41 | RAD REPORT ---
EXAM DESCRIPTION: RADChest Single View07/07/2023 9:12 pm CLINICAL HISTORY: CHEST PAIN COMPARISON: Chest Single View dated 06/07/2022; Chest Single View dated 02/04/2021; Chest Single View dated 05/13/2020; Chest Single View dated 08/02/2017 TECHNIQUE: Portable AP view of the chest. FINDINGS: The lungs are clear. No pneumothorax or effusion. The cardiomediastinal contours are unrem arkable. IMPRESSION: No acute cardiopulmonary process.
[2023-07-07 21:45] LABS: Absolute Lymphocytes (CBC) 1.9 K/uL (0.7-4.9); Hematocrit 39.7 % (36.0-45.0); Lymphocytes % 24.2 % (15.3-44.8); MCV 80.7 fL (80-100); Platelets 359 thou/uL (152-406); RBC Red Blood Cell Count 4.92 M/uL (3.86-4.86)
[2023-07-07 22:00] LABS: Albumin 3.8 g/dL (3.4-5.0); Bilirubin Direct 0.1 mg/dL (0-0.2); Bilirubin Indirect, Calculated 0.3 mg/dL (0.2-0.8); Bilirubin Total 0.4 mg/dL (0.2-1.0); Magnesium 2.1 mg/dL (1.6-2.4); Potassium 3.8 mEq/L (3.5-5.1); Protein, Total 8.3 g/dL (6.4-8.2); Troponin High Sensitivity 3.4 pg/mL (<58.9)
--- NOTE | 2023-07-07 22:01 | ER ---
Nurse's Notes [facility] Name: Liz Winkler Age: 37 yrs Sex: Female : 1985 Arrival Date: 07/07/2023 Time: 20:46 Bed 17 Private MD: Diagnosis: Chest pain, unspecified;Essential (primary) hypertension-uncontrolled;Dyspnea;Aortic aneurysm of unspecified site, without rupture-history of Presentation: 07/07 21:01 Chief complaint: Patient states: chest pressure/tightness starting yesterday morning. i lg3 thought it was gas but its getting worse. current pain /10. new onset headache, dizziness and SOB. HX AAA. Coronavirus screen: Client denies travel out of the [place] in the last 14 days. At this time, the client does not indicate any symptoms associated with coronavirus-19. Ebola Screen: No symptoms or risks identified at this time. Initial Sepsis Screen: Does the patient meet any 2 criteria? No. Patient's initial sepsis screen is negative. Does the patient have a suspected source of infection? No. Patient's initial sepsis screen is negative. Risk Assessment: Do you want to hurt yourself or someone else? Patient reports no desire to harm self or others. Onset of symptoms was July 06, 2023. 21:01 Method Of Arrival: Ambulatory lg3 21:01 Acuity: DINO 3 lg3 Triage Assessment: 21:04 General: Appears in no apparent distress. uncomfortable, Behavior is calm, cooperative. lg3 Pain: Complains of pain in chest Pain currently is 7 out of 10 on a pain scale. EENT: No deficits noted. No signs and/or symptoms were reported regarding the EENT system. Neuro: No deficits noted. Cabello Agitation-Sedation Scale (RASS): 0 - Alert and Calm Level of Consciousness is awake, alert, obeys commands, Oriented to person, place, time, situation. Neuro: Reports dizziness, headache. Cardiovascular: Reports chest pain, lightheadedness, palpitations, shortness of breath, Capillary refill < 3 seconds Clubbing of nail beds is absent JVD is absent Patient's skin is warm and dry. Respiratory: Reports shortness of breath Airway is patent Trachea midline Respiratory effort is even, unlabored, Respiratory pattern is regular, symmetrical, Breath sounds are clear bilaterally. GI: No deficits noted. No signs and/or symptoms were reported involving the gastrointestinal system. Abdomen is round non-distended, Abd is soft and non tender X 4 quads. : No deficits noted. No signs and/or symptoms were reported regarding the genitourinary system. Derm: No deficits noted. No signs and/or symptoms reported regarding the dermatologic system. Skin is intact, is healthy with good turgor, Skin is dry, Skin is normal, Skin temperature is warm. Musculoskeletal: No deficits noted. Circulation, motion, and sensation intact. Range of motion: intact in all extremities. 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 - Social history:: Smoking status: Reported history of juuling and/or vaping. Patient uses alcohol, occasionally. - Family history:: not pertinent. Screenin:11 [facility] ED Fall Risk Assessment (Adult) History of falling in the last 3 months, jw7 including since admission No falls in past 3 months (0 pts). Abuse screen: Denies threats or abuse. Denies injuries from another. Nutritional screening: No deficits noted. Tuberculosis screening: No symptoms or risk factors identified. Assessment: 22:11 General: Appears in no apparent distress. uncomfortable, Behavior is calm, cooperative. jw7 Pain: Complains of pain in chest Pain does not radiate. Pain currently is 7 out of 10 on a pain scale. Quality of pain is described as heavy, pressure, Pain began 1 day ago. Also complains of shortness of breath, headache. Neuro: No deficits noted. Cabello Agitation-Sedation Scale (RASS): 0 - Alert and Calm Level of Consciousness is awake, alert, obeys commands, Oriented to person, place, time, situation. Cardiovascular: Reports chest pain, shortness of breath, Capillary refill < 3 seconds Clubbing of nail beds is absent JVD is absent Patient's skin is warm and dry. Chest pain is described as mild, quality is heaviness, pressure, is located in epigastric area substernal area began 1 day ago. Respiratory: No deficits noted. Reports shortness of breath Airway is patent Trachea midline Respiratory effort is even, unlabored, Respiratory pattern is regular, symmetrical. GI: No deficits noted. No signs and/or symptoms were reported involving the gastrointestinal system. GI: Abdomen is round non-distended. : No deficits noted. No signs and/or symptoms were reported regarding the genitourinary system. EENT: No deficits noted. No signs and/or symptoms were reported regarding the EENT system. Derm: No deficits noted. No signs and/or symptoms reported regarding the dermatologic system. Skin is intact, is healthy with good turgor, Skin is dry, Skin is normal, Skin temperature is warm. Musculoskeletal: No deficits noted. No signs and/or symptoms reported regarding the musculoskeletal system. Circulation, motion, and sensation intact. Range of motion: intact in all extremities. 23:35 Reassessment: Patient appears in no apparent distress at this time. No changes from [facility] previously documented assessment. Patient and/or family updated on plan of care and expected duration. Pain level reassessed. Patient is alert, oriented x 3, equal unlabored respirations, skin warm/dry/pink. 07/08 00:18 General: attempted to call report, nurse not available . [facility] Vital Signs: 07/07 21:01 BP 148 / 110; Pulse 101; Resp 19 S; Temp 98.1(O); Pulse Ox 96% on R/A; Weight 74.84 kg lg3 (R); Height 5 ft. 2 in. (R); Pain 7/10; 22:11 BP 139 / 97; Pulse 93; Resp 18 S; Pulse Ox 96% on R/A; jw7 22:31 BP 139 / 96; Pulse 75; Resp 17 S; Pulse Ox 99% on R/A; jw7 23:22 BP 139 / 83; Pulse 74; Resp 19 S; Pulse Ox 99% on R/A; jw7 07/08 00:04 BP 129 / 86; Pulse 78; Resp 19 S; Pulse Ox 95% on R/A; jw7 07/07 21:01 Body Mass Index 30.18 (74.84 kg, 157.48 cm) lg3 07/07 21:01 Pain Scale: Adult lg3 ED Course: 07/07 20:48 Patient arrived in ED. im 20:51 Juancarlos Toscano MD is Attending Physician. laurence 21:01 Trista Dias, GURPREET is Primary Nurse. lg3 21:04 Triage completed. lg3 21:04 Arm band placed on right wrist. lg3 21:14 Chest Single View In Process Unspecified. EDMS 21:59 Chaz Dwyer MD is Hospitalizing Provider. laurence 22:11 Patient has correct armband on for positive identification. Placed in gown. Bed in low jw7 position. Call light in reach. Side rails up X 1. Client placed on continuous cardiac and pulse oximetry monitoring. NIBP monitoring applied. oyster cultivator on. Door closed. Noise minimized. Warm blanket given. 22:11 Initial lab(s) drawn, by me, sent to lab. Urine collected: clean catch specimen, clear, jw7 EKG done, by ED staff, reviewed by Juancarlos Toscano MD. Inserted saline lock: 20 gauge in left antecubital area, using aseptic technique. Blood collected. Patient maintains SpO2 saturation greater than 95% on room air. 23:17 CT Head Brain wo Cont In Process Unspecified. EDMS 23:18 CT Aorta for Dissection In Process Unspecified. EDMS 08 00:25 No provider procedures requiring assistance completed. Patient admitted, IV remains in jw7 place. No redness/swelling at site. 00:26 Provided Education on: on need for admit. jw7 Administered Medications: 07/07 21:08 CANCELLED (Duplicate Order): Aspirin PO Chewable Tablet 162 mg PO once [facility] 22:20 Drug: morphine IVP or IV 2 mg Route: IVP; Infused Over: 4 mins; Site: left antecubital; jw7 22:51 Follow up: Response: No adverse reaction jw7 22:20 Drug: Ondansetron IVP 4 mg Route: IVP; Site: left antecubital; jw7 22:50 Follow up: Response: No adverse reaction jw7 22:21 Drug: NS 0.9% IV 1000 ml Route: IV; Rate: 1 bolus; Site: left antecubital; jw7 23:03 Follow up: Response: No adverse reaction; IV Status: Infusion continued; IV Intake: jw7 450ml 22:21 Drug: Ativan IVP 1 mg Route: IVP; Site: left antecubital; jw7 22:52 Follow up: Response: No adverse reaction jw7 22:21 Drug: Labetalol IV 10 mg Route: IV; Rate: per protocol; Infused Over: 2 mins; Site: [facility] left antecubital; 23:03 Follow up: Response: No adverse reaction; IV Status: Completed infusion; IV Intake: 2ml jw7 22:21 Drug: Labetalol PO 100 mg Route: PO; jw7 22:51 Follow up: Response: No adverse reaction jw7 22:50 Drug: Aspirin PO Chewable Tablet 162 mg Route: PO; jw7 07/08 00:06 Follow up: Response: No adverse reaction jw7 07/07 23:34 Drug: Labetalol IV 10 mg Route: IV; Rate: per protocol; Site: left antecubital; jw7 07/08 00:06 Follow up: Response: No adverse reaction; IV Status: Completed infusion; IV Intake: 2ml jw7 Medication: 00:27 VIS not applicable for this client. jw7 Intake: 07/07 23:03 IV: 450ml; Total: 450ml. jw7 23:03 IV: 2ml; Total: 452ml. jw7 07/08 00:06 IV: 2ml; Total: 454ml. jw7 Outcome: 07/07 22:01 Decision to Hospitalize by Provider. laurence 07/08 00:25 Admitted to Tele accompanied by tech, via wheelchair, room 423, Report called to violeta Garcia Condition: stable Instructed on the need for admit, Demonstrated understanding of instructions. 00:54 Patient left the ED. lg3 Signatures: Dispatcher [employer] Juancarlos Browne MD MD cha Gibson, Lacie, RN RN lg3 Sahra العلي RN RN Arianne Panda Corrections: (The following items were deleted from the chart) 07/07 22:29 22:11 BP 134 / 92; Pulse 81bpm; Resp 18bpm; Spontaneous; Pulse Ox 96% RA; jw7 jw7
--- NOTE | 2023-07-07 22:01 | EDPHYS ---
Physician Documentation [facility] Name: Liz Winkler Age: 37 yrs Sex: Female : 1985 Arrival Date: 07/07/2023 Time: 20:46 Bed 17 Private MD: ED Physician Juancarlos Toscano HPI: 07/07 21:12 This 37 yrs old Female presents to ER via Ambulatory with complaints of Chest laurence Tightness, Chest Pain, Anxiety. 21:12 The patient or guardian reports chest pain that is located primarily in the substernal laurence area, anterior chest wall, bilaterally. The pain does not radiate. Associated signs and symptoms: Pertinent positives: lightheadedness, shortness of breath. The chest pain is described as a pressure. Duration: The patient or guardian reports multiple episodes, that wax and wane. Modifying factors: The symptoms are alleviated by nothing. the symptoms are aggravated by nothing. Severity of pain: At its worst the pain was mild in the emergency department the pain is unchanged. The patient has experienced similar episodes in the past, multiple times. 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 - Social history:: Smoking status: Reported history of juuling and/or vaping. Patient uses alcohol, occasionally. - Family history:: not pertinent. ROS: 21:12 Constitutional: Negative for fever, chills, and weight loss, Eyes: Negative for injury, laurence pain, redness, and discharge, ENT: Negative for injury, pain, and discharge, Neck: Negative for injury, pain, and swelling, Abdomen/GI: Negative for abdominal pain, nausea, vomiting, diarrhea, and constipation, Back: Negative for injury and pain, : Negative for injury, bleeding, discharge, and swelling, MS/Extremity: Negative for injury and deformity, Skin: Negative for injury, rash, and discoloration, Neuro: Negative for headache, weakness, numbness, tingling, and seizure, Psych: Negative for depression, anxiety, suicide ideation, homicidal ideation, and hallucinations, Allergy/Immunology: Negative for hives, rash, and allergies, Endocrine: Negative for neck swelling, polydipsia, polyuria, polyphagia, and marked weight changes, Hematologic/Lymphatic: Negative for swollen nodes, abnormal bleeding, and unusual bruising. 21:12 Cardiovascular: Positive for chest pain. 21:12 Respiratory: Positive for shortness of breath. Exam: 21:12 Constitutional: This is a well developed, well nourished patient who is awake, alert, laurence and in no acute distress. Head/Face: Normocephalic, atraumatic. Eyes: Pupils equal round and reactive to light, extra-ocular motions intact. Lids and lashes normal. Conjunctiva and sclera are non-icteric and not injected. Cornea within normal limits. Periorbital areas with no swelling, redness, or edema. ENT: Nares patent. No nasal discharge, no septal abnormalities noted. Tympanic membranes are normal and external auditory canals are clear. Oropharynx with no redness, swelling, or masses, exudates, or evidence of obstruction, uvula midline. Mucous membranes moist. Neck: Trachea midline, no thyromegaly or masses palpated, and no cervical lymphadenopathy. Supple, full range of motion without nuchal rigidity, or vertebral point tenderness. No Meningismus. Chest/axilla: Normal chest wall appearance and motion. Nontender with no deformity. No lesions are appreciated. Cardiovascular: Regular rate and rhythm with a normal S1 and S2. No gallops, murmurs, or rubs. Normal PMI, no JVD. No pulse deficits. Respiratory: Lungs have equal breath sounds bilaterally, clear to auscultation and percussion. No rales, rhonchi or wheezes noted. No increased work of breathing, no retractions or nasal flaring. Abdomen/GI: Soft, non-tender, with normal bowel sounds. No distension or tympany. No guarding or rebound. No evidence of tenderness throughout. Back: No spinal tenderness. No costovertebral tenderness. Full range of motion. Skin: Warm, dry with normal turgor. Normal color with no rashes, no lesions, and no evidence of cellulitis. MS/ Extremity: Pulses equal, no cyanosis. Neurovascular intact. Full, normal range of motion. Neuro: Awake and alert, GCS 15, oriented to person, place, time, and situation. Cranial nerves II-XII grossly intact. Motor strength 5/5 in all extremities. Sensory grossly intact. Cerebellar exam normal. Normal gait. Psych: Awake, alert, with orientation to person, place and time. Behavior, mood, and affect are within normal limits. 21:12 ECG was reviewed by the Attending Physician. 21:12 Musculoskeletal/extremity: DVT Exam: No signs of deep vein thrombosis. no pain, no swelling, no tenderness, negative Homans' sign noted on exam, no appreciated bluish discoloration, no erythema, no increased warmth. Vital Signs: 21:01 BP 148 / 110; Pulse 101; Resp 19 S; Temp 98.1(O); Pulse Ox 96% on R/A; Weight 74.84 kg lg3 (R); Height 5 ft. 2 in. (R); Pain 7/10; 22:11 BP 139 / 97; Pulse 93; Resp 18 S; Pulse Ox 96% on R/A; jw7 22:31 BP 139 / 96; Pulse 75; Resp 17 S; Pulse Ox 99% on R/A; jw7 23:22 BP 139 / 83; Pulse 74; Resp 19 S; Pulse Ox 99% on R/A; jw7 07/08 00:04 BP 129 / 86; Pulse 78; Resp 19 S; Pulse Ox 95% on R/A; jw7 07/07 21:01 Body Mass Index 30.18 (74.84 kg, 157.48 cm) 3 07/07 21:01 Pain Scale: Adult 3 MDM: 07/07 20:51 Patient medically screened. laurence 21:15 Differential diagnosis: abnormal EKG, acute myocardial infarction, acute pericarditis, laurence anxiety, coronary artery disease chest wall pain, Cholelithiasis costochondritis, esophagitis, gastroesophageal reflux disease (GERD), hiatal hernia, pancreatitis, peptic ulcer disease, pulmonary embolus, stable angina, thoracic aortic disection, unstable angina. HEART Score: History: Slightly Suspicious (0), ECG: Non specific repolarization disturbance / LBTB / PM (1), Age: < or = 45 years (0), Risk Factors: 1 or 2 risk factors (1), [Hypertension] [+ Family HX] Troponin: < or = 1 x Normal Limit (0). Data reviewed: vital signs, nurses notes, lab test result(s), EKG, radiologic studies, CT scan, plain films. Consideration of Admission/Observation Patient was admitted/placed on observation. Escalation of care including admission/observation considered. I considered the following discharge prescriptions or medication management in the emergency department Medications were administered in the Emergency Department. See MAR. Independent interpretation of the following test(s) in the Emergency Department EKG: See my EKG interpretation above. Test considered but Not performed: Ultrasound no echo. Historians other than the Patient: none. Care significantly affected by the following chronic conditions: Hypertension, aortic aneurysm. 07/07 20:52 Order name: Urinalysis w/ reflexes laurence 07/07 20:52 Order name: PREGU laurence 07/07 20:52 Order name: UDS laurence 07/07 21:33 Order name: Basic Metabolic Panel; Complete Time: 22:01 EDMS 07/07 21:33 Order name: Liver (Hepatic) Function; Complete Time: 22:01 EDMS 07/07 21:33 Order name: Troponin High Sensitivity; Complete Time: 22:01 EDMS 07/07 21:33 Order name: NT PRO-BNP; Complete Time: 22:01 EDMS 07/07 21:33 Order name: Magnesium; Complete Time: 22:01 EDMS 07/07 21:33 Order name: CBC with Automated Diff; Complete Time: 21:54 EDMS 07/07 21:33 Order name: D-Dimer; Complete Time: 21:54 EDMS 07/07 23:53 Order name: Urinalysis w/ reflexes EDMS 07/07 23:53 Order name: Basic Metabolic Panel EDMS 07/07 23:53 Order name: Basic Metabolic Panel EDMS 07/07 23:53 Order name: CBC with Automated Diff EDMS 07/07 23:53 Order name: CBC with Automated Diff EDMS 07/07 23:53 Order name: Magnesium EDMS 07/07 23:53 Order name: Magnesium EDMS 07/07 23:53 Order name: Troponin High Sensitivity EDMS 07/07 23:53 Order name: Troponin High Sensitivity EDMS 07/07 23:53 Order name: Troponin High Sensitivity EDMS 07/07 23:53 Order name: Troponin High Sensitivity EDMS 07/07 21:02 Order name: Chest Single View; Complete Time: 21:54 [facility] 07/07 21:09 Order name: CT Head Brain wo Cont [facility] 07/07 21:11 Order name: CT Aorta for Dissection [facility] 07/07 20:52 Order name: EKG; Complete Time: 21:30 [facility] 07/07 23:53 Order name: NPO [facility] 07/07 20:52 Order name: Cardiac monitoring; Complete Time: 22:22 [facility] 07/07 20:52 Order name: EKG - Nurse/Tech; Complete Time: : [facility] 07/07 20:52 Order name: IV Saline Lock; Complete Time: : [facility] 07/07 20:52 Order name: Labs collected and sent; Complete Time: 22: [facility] 07/07 20:52 Order name: O2 Per Protocol; Complete Time: : [facility] 07/07 20:52 Order name: O2 Sat Monitoring; Complete Time: :22 [facility] EC:12 Rate is 101 beats/min. Rhythm is regular. QRS [place] is Normal. AR interval is normal. [facility] QRS interval is normal. QT interval is normal. No Q waves. T waves are Normal. No ST changes noted. Clinical impression: Sinus tachycardia and No evidence of ischemia. Interpreted by me. Reviewed by me. Administered Medications: 21:08 CANCELLED (Duplicate Order): Aspirin PO Chewable Tablet 162 mg PO once [facility] 22:20 Drug: morphine IVP or IV 2 mg Route: IVP; Infused Over: 4 mins; Site: left antecubital; jw7 22:51 Follow up: Response: No adverse reaction jw7 22:20 Drug: Ondansetron IVP 4 mg Route: IVP; Site: left antecubital; jw7 22:50 Follow up: Response: No adverse reaction jw7 22:21 Drug: NS 0.9% IV 1000 ml Route: IV; Rate: 1 bolus; Site: left antecubital; jw7 23:03 Follow up: Response: No adverse reaction; IV Status: Infusion continued; IV Intake: jw7 450ml 22:21 Drug: Ativan IVP 1 mg Route: IVP; Site: left antecubital; jw7 22:52 Follow up: Response: No adverse reaction jw7 22:21 Drug: Labetalol IV 10 mg Route: IV; Rate: per protocol; Infused Over: 2 mins; Site: [facility] left antecubital; 23:03 Follow up: Response: No adverse reaction; IV Status: Completed infusion; IV Intake: 2ml jw7 22:21 Drug: Labetalol PO 100 mg Route: PO; 22:51 Follow up: Response: No adverse reaction 7 22:50 Drug: Aspirin PO Chewable Tablet 162 mg Route: PO; jw7 07/08 00:06 Follow up: Response: No adverse reaction 7 07/07 23:34 Drug: Labetalol IV 10 mg Route: IV; Rate: per protocol; Site: left antecubital; 7 07/08 00:06 Follow up: Response: No adverse reaction; IV Status: Completed infusion; IV Intake: 2ml jw7 Disposition Summary: 07/07/23 22:01 Hospitalization Ordered Hospitalization Status: Observation laurence Provider: Chaz Dwyer cha Location: Telemetry/MedSurg (observation) laurence Condition: Stable laurence Problem: new laurence Symptoms: have improved laurence Bed/Room Type: Standard laurence Room Assignment: 423(07/07/23 23:55) Diagnosis - Chest pain, unspecified laurence - Essential (primary) hypertension - uncontrolled laurence - Dyspnea laurence - Aortic aneurysm of unspecified site, without rupture - history of laurence Forms: - Medication Reconciliation Form laurence - SBAR form laurence Signatures: Dispatcher [employer] EDJuancarlos Dover MD MD cha Garcia, Cindy, RN Trista Lange RN RN lg3 Sahra العلي RN RN jw7 Corrections: (The following items were deleted from the chart) 07/07 21:08 20:53 Aspirin PO Chewable Tablet 162 mg PO once ordered. laurence laurnece 21:37 21:30 Chest Single View+RAD.RAD.BRZ ordered. EDMS EDMS 22:39 21:30 BASIC METABOLIC PANEL+C.LAB.BRZ ordered. EDMS EDMS 22:39 21:30 CBC+H.LAB.BRZ ordered. EDMS EDMS 22:39 21:30 D-DIMER+COAG.LAB.BRZ ordered. EDMS EDMS 22:39 21:30 HEPATIC FUNCTION+C.LAB.BRZ ordered. EDMS EDMS 22:39 21:30 MAGNESIUM+C.LAB.BRZ ordered. EDMS EDMS 22:39 21:30 PROBNP+C.LAB.BRZ ordered. EDMS EDMS 22:39 21:30 Troponin High Sensitivity+C.LAB.MADDIEZ ordered. EDMS EDMS 23:55 22:01 laurence cg
--- NOTE | 2023-07-07 22:12 | P.HP ---
Certification for Inpatient Patient admitted to: Observation With expected LOS: <2 Midnights Patient will require the following post-hospital care: None Practitioner: I am a practitioner with admitting privileges, knowledge of patient current condition, hospital course, and medical plan of care. Services: Services provided to patient in accordance with Admission requirements found in Title 42 Section 412.3 of the Code of Federal Regulations Patient History Date of Service: 07/08/23 Reason for admission: Chest pain History of Present Illness: 37-year-old female with a past medical history of anxiety, aortic aneurysm, hypertension, depression, presents to the emergency room with chest pain. Chest pain is substernal denies radiation. Reports shortness of breath, and lightheadedness started today at rest. Chest pain described as pressure, she denies recent infection, nausea vomiting diarrhea abdominal pain edema,. Plan to admit for chest pain rule out CO dyspnea, aortic aneurysm without rupture.. Laboratory evaluation CBC unremarkable CMP unremarkable urine unremarkable UDS negative. Chest x-ray, CT a ordered. EKG 2 Rate is 101 beats/min. Rhythm is regular. QRS [place] is Normal. UT interval is normal. QRS interval is normal. QT interval is normal. No Q waves. T waves are Normal. No ST changes noted. Clinical impression: Sinus tachycardia and No evidence of ischemia. Allergies Penicillins Allergy (Mild, Verified 09/10/14 23:36) Rash - Past Medical/Surgical History Diabetic: No -: htn -: aortic aneurysm -: NVD 2001 -: nvd 2007 -: NDV 2008 - Family History Mother -: Heart disease, Hypertension, Diabetes - Social History Smoking Status: Never smoker Alcohol use: No CD- Drugs: No Caffeine use: Yes Review of Systems 10-point ROS is otherwise unremarkable Physical Examination - Physical Exam General: Alert, In no apparent distress, Oriented x3 HEENT: Atraumatic, Normocephalic, PERRLA Neck: Supple, 2+ carotid pulse no bruit Respiratory: Clear to auscultation bilaterally, Normal air movement Cardiovascular: Normal pulses, Regular rate/rhythm, Normal S1 S2, Other (Substernal chest pain) Capillary refill: <2 Seconds Gastrointestinal: Normal bowel sounds, Soft and benign Musculoskeletal: No clubbing, No swelling Integumentary: No rashes, No breakdown Neurological: Normal speech, Normal strength at 5/5 x4 extr, Cranial nerves 3-12 intact - Studies Laboratory Data (last 24 hrs) 07/07/23 07/07/23 21:19 21:19 WBC 7.70 Hgb 13.0 Hct 39.7 Plt Count 359 Sodium 139 Potassium 3.8 BUN 18 Creatinine 1.00 Glucose 105 Magnesium 2.1 Total Bilirubin 0.4 AST 11 L ALT 27 Alkaline Phosphatase 92 Assessment and Plan - Plan Assessment plan chest pain rule out CO Abdominal aortic aneurysm Essential hypertension Anxiety depression DVT prophylaxis Assessment plan chest pain rule out CO Cardiology consult, telemetry, Trend troponin, Laboratory evaluation CBC unremarkable CMP unremarkable urine unremarkable UDS negative. Chest x-ray, CT a ordered. EKG 2 Rate is 101 beats/min. Rhythm is regular. QRS [place] is Normal. UT interval is normal. QRS interval is normal. QT interval is normal. No Q waves. T waves are Normal. No ST changes noted. Clinical impression: Sinus tachycardia and No evidence of ischemia. Abdominal aortic aneurysm CT of the abdomen pelvis pending result, cardiology consult CT angio for dissection 06/08/2022, IMPRESSION: No dissection or acute aortic finding. Ascending thoracic aorta is up 3.8 cm with the aortic arch 2.3 cm. Descending thoracic aorta and abdominal aorta unremarkable. No changes to the aorta since January 2021 Essential hypertension Anxiety depression Resume appropriate home meds DVT prophylaxis Diet n.p.o. after midnight Full code Discharge Plan: Home Plan to discharge in: 24 Hours - Advance Directives Does patient have a Living Will: No Does patient have a Durable POA for Healthcare: No - Code Status/Comfort Care Code Status: Full Code Physician Review: Patient Assessed, Agree with Above Assessment and Plan Time Spent Managing Pts Care (In Minutes): 50
[2023-07-07 22:15] LABS: Specific Gravity 1.009 (1.005-1.030); Urine Bilirubin NEGATIVE (Negative); Urine Blood Negative (Negative); Urine Clarity Clear (Clear); Urine Color Colorless (Yellow); Urine Glucose NEGATIVE (Negative); Urine Protein NEGATIVE (Negative); Urine Urobilinogen Normal (Normal)
[2023-07-07 22:22] LABS: Barbiturates NEGATIVE (NEGATIVE); Benzodiazepines NEGATIVE (NEGATIVE); Cocaine NEGATIVE (NEGATIVE); METHAMPHETAM NEGATIVE (NEGATIVE); Methadone NEGATIVE (NEGATIVE); Opiates NEGATIVE (NEGATIVE); Phencyclidine NEGATIVE (NEGATIVE); THC Cannibis NEGATIVE (NEGATIVE)
[2023-07-07] MEDS ORDERED: ASPIRIN 81 MG CHEWABLE TABLET ONE (22:58)
[2023-07-07] MEDS ORDERED: ZOLPIDEM TARTRATE 5 MG TABLET PO PRN (23:51)
[2023-07-07] MEDS ORDERED: ONDANSETRON 4 MG/2 ML VIAL IV PRN (23:51)
[2023-07-07] MEDS ORDERED: ACETAMINOPHEN 500 MG TAB PO PRN (23:51)
[2023-07-08 01:06] VITALS: BMI 30.7
[2023-07-08 01:09] VITALS: O2SAT 95
[2023-07-08] MEDS ORDERED: MORPHINE 4 MG/ML SYR IV ONE (04:05)
[2023-07-08 06:42] LABS: Hematocrit 35.5 % (36.0-45.0); Lymphocytes % 29.9 % (15.3-44.8); MCV 81.4 fL (80-100); MPV 6.9 fL (7.6-11.3); Platelets 306 thou/uL (152-406); RBC Red Blood Cell Count 4.36 M/uL (3.86-4.86)
[2023-07-08 07:01] LABS: Magnesium 2.2 mg/dL (1.6-2.4); Potassium 4.1 mEq/L (3.5-5.1); Troponin High Sensitivity 4.5 pg/mL (<58.9)
[2023-07-08] MEDS ORDERED: METOPROLOL XL 25 MG TAB PO SCH (09:00)
--- NOTE | 2023-07-08 09:37 | P.DS ---
Admission Date: 07/07/23 Discharge Date: 07/08/23 Disposition: ROUTINE DISCHARGE Discharge Condition: FAIR Reason for Admission: Chest pain Brief History of Present Illness: Patient is 37 years of age admitted with substernal chest pain started on Tuesday labs as chest pressure been constant some chest pressure before about a year ago was related to high blood pressure and also seeing a environmental attorney has a small aneurysm has any symptoms of reflux no evidence of MA changes on the EKG no acute ST-T changes on his were all negative CT dissection was also negative chest x-ray clear Hospital Course: Patient was admitted has some pain medication and has constant chest discomfort plan to discharge her on low-dose beta-harriett her blood pressure was elevated on admission may be related to anxiety may have underlying reflux I also ordered a PPI Time of discharge alert oriented responsive cooperative very comfortable clear cardiovascular system heart sounds normal labs reviewed unremarkable apart from mild anemia. Patient to follow-up with her environmental attorney Dr. Macias/ GONZALO 4 cm To F/U with cardiology Vital Signs/Physical Exam: Temp Pulse Resp BP Pulse Ox 97.6 F 62 14 130/88 96 07/08/23 04:00 07/08/23 04:00 07/08/23 04:39 07/08/23 04:00 07/08/23 04:39 Laboratory Data at Discharge: WBC 6.60 thou/uL (4.3-10.9) 07/08/23 06:14 Hgb 11.7 g/dL (12.0-15.0) L D 07/08/23 06:14 Hct 35.5 % (36.0-45.0) L 07/08/23 06:14 Plt Count 306 thou/uL (152-406) 07/08/23 06:14 Sodium 136 mEq/L (136-145) 07/08/23 06:14 Potassium 4.1 mEq/L (3.5-5.1) 07/08/23 06:14 BUN 16 mg/dL (7-18) 07/08/23 06:14 Creatinine 0.89 mg/dL (0.55-1.02) 07/08/23 06:14 Glucose 102 mg/dL (74-106) 07/08/23 06:14 Magnesium 2.2 mg/dL (1.6-2.4) 07/08/23 06:14 Total Bilirubin 0.4 mg/dL (0.2-1.0) 07/07/23 21:19 AST 11 U/L (15-37) L 07/07/23 21:19 ALT 27 U/L (13-56) 07/07/23 21:19 Alkaline Phosphatase 92 U/L (45-117) 07/07/23 21:19 Home Medications: Losartan Potassium 1 tab PO DAILY 07/08/23 Metoprolol Succinate [Toprol Xl] 25 mg PO DAILY 30 Days #30 tab.sr.24h 07/08/23 Pantoprazole Sodium [Protonix] 40 mg PO DAILY 30 Days #30 tab 07/08/23 New Medications: Pantoprazole Sodium [Protonix] 40 mg PO DAILY 30 Days #30 tab Metoprolol Succinate [Toprol Xl] 25 mg PO DAILY 30 Days #30 tab.sr.24h Physician Discharge Instructions: F?U Dr. Macias. New med faxed. OTC NSAIDS/ Tyelenol if needed Diet: ADA
[2023-07-08 12:27] VITALS: BP 135/65; TEMP 97.6
--- NOTE | 2023-07-08 18:16 | RAD REPORT ---
EXAM DESCRIPTION: CT - Angio Aorta For Dissection - 07/08/2023 6:55 am CLINICAL HISTORY: The patient is 37 years old and is Female; ABD PAIN TECHNIQUE: Axial computed tomographic angiography images of the chest, abdomen and pelvis with intra venous contrast. Sagittal and coronal reformatted images were created and reviewed. This CT exam was performed using one or more of the following dose reduction techniques: automated exposure cont rol, adjustment of the mA and/or kV according to patient size, and/or use of iterative reconstruction technique. MIP reconstructed images were created and reviewed. COMPARISON: CT June 08, 2022. FINDINGS: VASCULATURE: AORTA: Mild aneurysmal dilatation of the ascending aorta is redemonstrated measuring up to 4.0 cm . This is not changed from prior exam. There is no evidence of dissection. PULMONARY ARTERIES: Unremarkable as visualized. No pulmonary embolism is identified. GREAT VESSELS OF AORTIC ARCH: No acute findings. No dissection. No arterial occlusion or sign ificant stenosis. CELIAC TRUNK AND MESENTERIC ARTERIES: No acute findings. No occlusion or significant stenosis. RENAL ARTERIES: No acute findings. No occlusion or significant stenosis. ILIAC ARTERIES: No acute findings. No occlusion or significant stenosis. CHEST: LUNGS: Unremarkable. No mass. No consolidation. PLEURAL SPACE: Unremarkable. No significant effusion. No pneumothorax. HEART: Unremarkable. No cardiomegaly. No significant pericardial effusion. ABDOMEN: LIVER: Unremarkable. No mass. GALLBLADDER AND BILE DUCTS: The gallbladder slightly contracted. No calcified stones. No duct al dilation. PANCREAS: Unremarkable. No ductal dilation. No mass. SPLEEN: A splenule is present within left upper quadrant. The spleen is heterogeneous secondary t o phase of contrast. ADRENALS: Unremarkable. No mass. KIDNEYS AND URETERS: Unremarkable. No hydronephrosis. No solid mass. STOMACH AND BOWEL: The stomach is distended with food contents. The small bowel is relatively nor mal in caliber. Stool is present within the colon. There is no mucosal thickening or evidence of obst ruction. A few scattered colonic diverticula are noted without surrounding inflammation. PELVIS: APPENDIX: The appendix is normal in caliber without surrounding inflammation. BLADDER: The bladder is well distended. REPRODUCTIVE: Unremarkable as visualized. CHEST, ABDOMEN and PELVIS: INTRAPERITONEAL SPACE: Calcified phleboliths are present within the pelvis. No significant flui d collection. No free air. BONES/JOINTS: No acute fracture. No dislocation. SOFT TISSUES: Unremarkable. LYMPH NODES: Unremarkable. No enlarged lymph nodes. IMPRESSION: 1. Persistent mild ascending aorta aneurysm. No evidence of dissection. 2. No acute findings on this CTA of the chest, abdomen, pelvis to explain the patient's symptoms. Electronically signed by: Maryan Goyal MD 07/08/2023 12:29 AM CDT Due to temporary technical issues with the PACS/Fluency reporting system, reports are being signed by the in house radiologists without review as a courtesy to insure prompt reporting. The interpreting radiologist is fully responsible for the content of the report.
--- NOTE | 2023-07-08 18:19 | RAD REPORT ---
EXAM DESCRIPTION: CT - Head Brain Wo Cont - 07/08/2023 6:55 am CLINICAL HISTORY: 37-year-old female with dizziness and headache. COMPARISON None. TECHNIQUE: CT brain without contrast. This exam was performed according to our departmental dose opt imization program which includes use of automated exposure control, adjustment of the mA and/or kV ac cording to patient size and/or use of iterative reconstruction technique. FINDINGS: The ventricles, sulci, and cisterns are within normal limits. The han-white matter diff erentiation is preserved. There is no mass effect, midline shift, intra- or extra-axial fluid colle ction/acute hemorrhage. Partially empty sella otherwise the midline structures are within normal limi ts. The osseous structures are unremarkable. The paranasal sinuses and mastoid air cells are clear. IMPRESSION: No acute intracranial abnormalities. Electronically signed by: Shawna Coronado MD 07/08/2023 12:15 AM CDT Due to temporary technical issues with the PACS/Fluency reporting system, reports are being signed by the in house radiologists without review as a courtesy to insure prompt reporting. The interpreting radiologist is fully responsible for the content of the report.
--- NOTE | 2023-07-09 11:34 | CON ---
Reason For Consultation: Chest pain. History Of Present Illness: A 37-year-old female with history of significant anxiety disorder, hyper tension, depression, presented with substernal chest pain. No radiation started while at rest and sh e claimed that it started 24 hours ago and is constantly there, increases with movement of the chest wall or palpation of the chest wall. Denies having any exertional chest pain. No shortness of breat h. Past Medical History: As outlined above in the HPI. Medications: Refer reconciliation sheet for detailed list. Allergies: PENICILLIN. Family History: No premature coronary artery disease or cancer. Social History: Does not smoke or drink or use any drugs. Review of Systems: All systems reviewed and they were negative except as mentioned in the HPI. Physical Examination: Vital Signs: Reviewed. Head and Neck: Pupils are equal and reactive to light. Intact eye movements. No JVD. No cervical lymphadenopathy. Neck is supple. Thyroid is not enlarged. Lungs: Clear to auscultation bilaterally. No rhonchi, wheezing, or crackles. No accessory muscle u se. Heart: Regular rate and rhythm. No extra sounds. Abdomen: Soft, nontender. Bowel sounds positive. No organomegaly. No masses or hernia. No rigidi ty or rebound. Extremities: No edema, clubbing, cyanosis. Intact pulses. Skin: No rash. Neurologic: Alert, awake, oriented x3. No acute focal deficits appreciated. Lymph Nodes: No cervical or axillary lymphadenopathy. Investigations: On CT scan of the chest, there is mild dilation of the aorta at 4.0 cm, but there ar e no acute findings on the CT scan. Cardiac enzymes and troponins are negative. BUN 16, creatinine 0.89. Hemoglobin is 11.7. Assessment/recommendation: Chest pain, very atypical. Pain has been there for more than 24 hours, c onstant, and reproducible with chest wall palpation. Given that cardiac enzymes are negative, I wil alicea this is musculoskeletal pain and no further cardiac workup as an inpatient is recommended. Esther ricketts was instructed to follow up as an outpatient. If she continues to have chest pain, we will plan f or exercise stress test. Cardiology will sign off. SR/MODL Voice ID: [id number] Report ID: [id number]
--- NOTE | 2023-07-10 15:34 | EKG ---
Test Date: 2023-07-07 Test Time: 21:02:30 Waste Treatment Operator: DUTCH MEASUREMENT RESULTS: Intervals: Rate: 101 IL: 144 QRSD: 74 QT: 336 QTc: 435 [place]: P: 33 IL: 144 QRS: 16 T: 49 INTERPRETIVE STATEMENTS: Sinus tachycardia Anterior infarct, age undetermined Abnormal ECG Compared to ECG 06/07/2022 22:22:39 Myocardial infarct finding now present Sinus rhythm no longer present Electronically Signed On 07-10-23 15:31:30 CDT by Emery Christina
== END 2023-07-08 12:00 | disposition home or self-care (01) ==
LOC: ER 20:46 → ERHOLD 23:49 → 4TH 07-08 00:17
PROVIDERS: ADMIT Internal Medicine Sleep Medicine; ATTEND Internal Medicine Sleep Medicine
DX: R07.9 Chest pain, unspecified (principal); F41.9 Anxiety disorder, unspecified; I10 Essential (primary) hypertension; F32.A Depression, unspecified; Z88.0 Allergy status to penicillin
CPT/HCPCS: 36415; 70450; 71045; 71275; 74175; 80048; 80076; 80307; 81003; 81025; 83735; 83880; 84484; 85025; 85379; 93005; 96365; 96375; 99285; J2270; J2405; J7030; Q9967

== ENCOUNTER 2023-07-19 16:17 | Emergency (ER) | payer SELFPAY ==
--- OUTSIDE RECORDS SUMMARY | 2023-07-19 16:21 | XMS REPORT | Continuity of Care Document ---
:1985 Author Organization [facility] t Address [address] [place] [address] [address] [place] [address] Care Team Providers Name Role Phone Jasmine Loera Primary Care Physician [phone] Problems This patient has no known problems. [...] Goal Plan of Care Note [code = 68840-6] Goal Plan of Care Note [code = 42156-2] Goal Plan of Care Note [code = 18136-3] Goal Plan of Care Note [code = 65540-2] Goal Plan of Care Note [code = 91123-2] Goal Plan of Care Note [code = 22146-8] Goal Plan of Care Note [code = 33672-8] Goal Plan of Care Note [code = 94558-9] Goal Plan of Care Note [code = 52025-9] Goal Plan of Care Note [code = 67900-6] Goal Plan of Care Note [code = 54294-3] Goal Plan of Care Note [code = 16462-4] Goal Plan of Care Note [code = 60816-7] Goal Plan of Care Note [code = 71335-0] Encounters Start End Encounter Admission Attending Care Care Encounter Source Date/Time Date/Time Type Type Clinicians Facility Department ID 2023-05-05 2023-05-05 Outpatient [facility] 023 Jd 10:06:40 10:06:40 [id number] [place] 2023-03-24 2023-03-24 Outpatient [facility] 023 Jd 15:42:02 15:42:02 0427 [facility] [place] 2022-12-23 2022-12-23 Outpatient [facility] 023 Jd 15:17:27 15:17:27 [id number] [facility] 2022-11-26 2022-11-26 Outpatient [facility] 022 Jd 16:19:43 16:19:43 1230 [facility] [place] 2022-11-26 2022-11-26 Outpatient [id number] 00:00:00 00:00:00 Visit [id number] 2022-08-27 2022-08-27 Outpatient [id number] 00:00:00 00:00:00 Visit [id number] Results Test Description Test Time Test Comments Results Result Comments Source PAP TEST, THINPREP, IMAGED 2022-12-24 16:06:50 Test Item Value Reference Range Interpretation Comme nts SOURCE: (test code = Cervical/Endocervical 8001) SLIDES: (test code = 1 8011) LMP: (test code = 12/11/2022 8021) SPECIMEN ADEQUACY: (NOTE) Antony davies (test code = 38161) evaluati on. Endocervical cells/transform ation zone component prese nt. INTERPRETATION: NILM/NO EPITH. ABNORMALITY;SEE (test code = 62522) BELOW -------- NEGATIVE FOR INTRAEPITHE LIAL LESION OR MALIGNANCY ( NILM) -- DIETARY ASSISTANT: MARLIN George(ASCP) IAC (test code = 8101) LOCATION: (test code (NOTE) Specime ns processed and = 65768) [facility], [address] [place] [id number], Phone: , CLIA: [id number] CPT: (test code = (NOTE) 45041 UNLE SS OTHERWISE 8140) INDICATED, COMP UTER [...] is avai lable as applicable. CT/NG, NAAT, [id number] 16:02:42 Test Item Value Reference Range Interpretation Comments CHLAMYDIA, NAAT, NEGATIVE NEGATIVE A negative result does THINPREP (test code not excl ude low level = 46992) infection, specimensamplin g error, or collection erro r. Testing is performed wi th the [employer] systems usingre al-time Polymerase Dwayne n Reaction (PCR) method. GONORRHEA, NAAT, NEGATIVE NEGATIVE A negative result does THINPREP (test code not excl ude low level = 29999) infection, specimensamplin g error, or collection erro r. Testing is performed wi th the [employer] systems usingre al-time Polymerase Dwayne n Reaction (PCR) method. HPV HIGH RISK WITH GENOTYPE, [id number] 14:10:39 Test Item Value Reference Range Interpretation Comments HPV HIGH RISK INTERP NEGATIVE NEGATIVE (test code = 45050) HPV 16 (test code = NEGATIVE 87610) HPV 18 (test code = NEGATIVE 65642) HPV, HR, OTHER NEGATIVE Testing meth odology is GENOTYPES (test code real-ti me PCR utilizing = 01930) hydrolysis prob es with the [employer] [...] [facility], [place] [address] [place] [address] LABORATORY DIRE CTOR: NATACHA MELARA M.D. CLIA NUMBER [id number] [place] [id number] LIPID [id number] 01:51:37 Test Item Value Reference Range Interpretation [...] MOREINFORMATION , SEE CLIENT ANNOUNCE MENT AT [email or web address] [email or web address] RATIO LDL/HDL 3.11 RATIO <3.22 UNLESS O THERWISE (test code = 2238) INDICATED , ALL TESTING PERFORMED [facility], [facility]. [address] [place] [address] DIRECTOR: NATACHA SWEENEY M.D. CLIA NUMBER [id number] CAP ACCREDITATION N O. [id number] COMPREHENSIVE METABOLIC [id number] 01:51:37 Test Item Value Reference Range Interpretation Comments GLUCOSE (test code = 99 MG/DL 70-99 2216) BUN (test code = 13 MG/DL 6-20 2207) CREATININE (test 0.76 MG/DL 0.60-1.30 code = 2214) eGFR (2020 CKD-EPI) 103 >60 (test code = 44134) ML/MIN/1.73 CALC BUN/CREAT (test 17 RATIO 6-28 code = 2235) SODIUM (test code = 141 MEQ/L 033-245 0711) POTASSIUM (test code 4.4 MEQ/L 3.5-5.4 = [...] Comments SARS-CoV-2 INTERPRETATION (test POSITIVE code = 66273) SOURCE (test code = 43864) NOT SPECIFIED SARS-CoV-2 (COVID-19) by RT-PCR (HIGH RISK)2020-06-19 00:00:00 Test Item Value Reference Range Interpretation Comments SARS-CoV-2 INTERPRETATION (test POSITIVE code = 66921) SOURCE (test code = 12706) NOT SPECIFIED SARS-CoV-2 (COVID-19) by RT-PCR (HIGH RISK)2020-06-19 00:00:00 Test Item Value Reference Range Interpretation Comments SARS-CoV-2 INTERPRETATION (test POSITIVE code = 48457) SOURCE (test code = 92620) NOT SPECIFIED SARS-CoV-2 (COVID-19) by RT-PCR (HIGH RISK)2020-06-19 00:00:00 Test Item Value Reference Range Interpretation Comments SARS-CoV-2 INTERPRETATION (test POSITIVE code = 40444) SOURCE (test code = 15139) NOT SPECIFIED SARS-CoV-2 (COVID-19) by RT-PCR (HIGH RISK)2020-06-04 00:00:00 Test Item Value Reference Range Interpretation Comments SARS-CoV-2 INTERPRETATION (test POSITIVE code = 02124) SOURCE (test code = 00806) NOT SPECIFIED SARS-CoV-2 (COVID-19) by RT-PCR (HIGH RISK)2020-06-04 00:00:00 Test Item Value Reference Range Interpretation Comments SARS-CoV-2 INTERPRETATION (test POSITIVE code = 01230) SOURCE (test code = 63552) NOT SPECIFIED SARS-CoV-2 (COVID-19) by RT-PCR (HIGH RISK)2020-06-04 00:00:00 Test Item Value Reference Range Interpretation Comments SARS-CoV-2 INTERPRETATION (test POSITIVE code = 03993) SOURCE (test code = 68814) NOT SPECIFIED SARS-CoV-2 (COVID-19) by RT-PCR (HIGH RISK)2020-06-04 00:00:00 Test Item Value Reference Range Interpretation Comments SARS-CoV-2 INTERPRETATION (test POSITIVE code = 33050) SOURCE (test code = 97403) NOT SPECIFIED
[2023-07-19 17:02] LABS: Absolute Lymphocytes (CBC) 1.5 K/uL (0.7-4.9); Hematocrit 36.3 % (36.0-45.0); Lymphocytes % 20.2 % (15.3-44.8); MPV 7.1 fL (7.6-11.3); Platelets 293 thou/uL (152-406); RBC Red Blood Cell Count 4.49 M/uL (3.86-4.86)
[2023-07-19 17:17] LABS: Potassium 3.4 mEq/L (3.5-5.1); Troponin High Sensitivity 3.6 pg/mL (<58.9)
--- NOTE | 2023-07-19 17:34 | RAD REPORT ---
EXAM DESCRIPTION: RAD - Chest Single View - 07/19/2023 5:10 pm CLINICAL HISTORY: Dyspnea;Palpitations Chest pain. COMPARISON: Chest Single View dated 07/07/2023; Chest Single View dated 06/07/2022; Chest Single View dated 02/04/2021; Chest Single View dated 05/13/2020 FINDINGS: Portable technique limits examination quality. The lungs are grossly clear. The heart is normal in size. No displaced fractures. IMPRESSION: No acute intrathoracic process suspected.
--- NOTE | 2023-07-19 17:42 | EDPHYS ---
Physician Documentation [facility] Name: Liz Winkler Age: 37 yrs Sex: Female : 1985 Arrival Date: 07/19/2023 Time: 16:17 Bed 5 Private MD: ED Physician Juancarlos Toscano HPI: 07/19 17:45 This 37 yrs old Female presents to ER via Ambulatory with complaints of kb Anxiety, Chest Pain. 17:45 the patient presents with a swollen area of the left breast. Description: erythematous, kb swollen, warm. Onset: The symptoms/episode began/occurred yesterday. Possible cause(s): unknown. Associated signs and symptoms: Pertinent positives: erythema, swelling, Pertinent negatives: discharge, drainage, foreign body sensation, fever, headache, nausea, shortness of breath, vomiting. Modifying factors: the symptoms are alleviated by nothing, the symptoms are aggravated by pressure. Severity of symptoms: At their worst the symptoms were moderate, in the emergency department the symptoms are unchanged. The patient has not experienced similar symptoms in the past. The patient has not recently seen a physician. Pt reports she had some redness at 12 o'clock on left breast yesterday and today felt a lump in the same area. States this is causing her to feel anxious causing shortness of breath and palpitations. . Historical: - Allergies: 16:24 PENICILLINS; aa5 - PMHx: 16:24 Anxiety; Cardiac Aneurism; depressive disorder; ectopic ; Hypertensive aa5 disorder; - PSHx: 16:24 tubal ligation; Tummy tuck; aa5 - Immunization history:: Adult Immunizations unknown. - Social history:: Smoking status: Reported history of juuling and/or vaping. ROS: 16:27 Constitutional: Negative for fever, chills, and weight loss. kb 16:27 Cardiovascular: Positive for palpitations. 16:27 Respiratory: Positive for shortness of breath. 16:27 All other systems are negative. 16:51 Skin: Positive for erythema, of the left breast. kb Exam: 16:48 Constitutional: This is a well developed, well nourished patient who is awake, alert, kb and in no acute distress. Head/Face: Normocephalic, atraumatic. ENT: Moist Mucous membranes Cardiovascular: Regular rate and rhythm with a normal S1 and S2. No gallops, murmurs, or rubs. No pulse deficits. Respiratory: Respirations even and unlabored. No increased work of breathing. Talking in full sentences Abdomen/GI: Soft, non-tender. No distention MS/ Extremity: Pulses equal, no cyanosis. Neurovascular intact. Full, normal range of motion. Neuro: Awake and alert, GCS 15, oriented to person, place, time, and situation. Moves all extremities. Normal gait. 16:48 Skin: cellulitis, that is mild, on the left breast. 16:51 ECG was reviewed by the Attending Physician. kb Vital Signs: 16:23 BP 157 / 98; Pulse 78; Resp 18 S; Temp 98.1(O); Pulse Ox 100% on R/A; Weight 77.11 kg aa5 (R); Height 5 ft. 2 in. (R); 17:28 BP 123 / 86; Pulse 70; Resp 14; Pulse Ox 100% on R/A; ph 16:23 Body Mass Index 31.09 (77.11 kg, 157.48 cm) aa5 MDM: 16:21 Patient medically screened. kb 16:45 Data reviewed: vital signs, nurses notes. kb 17:44 Differential diagnosis: abscess, allergic reaction, cellulitis, insect bite. Test kb considered but Not performed: Ultrasound US of breast to evaluate lump considered, but would not change plan of care at this point. Will prescribe antibiotics and pt will follow up with HOSPITAL NURSE for US/mammogram as needed. Care significantly affected by the following Social Determinants of Health: Poor access to healthcare and/or lack of insurance. Counseling: I had a detailed discussion with the patient and/or guardian regarding the historical points, exam findings, and any diagnostic results supporting the discharge/admit diagnosis, lab results, radiology results, the need for outpatient follow up, a family practitioner, an OB/Gyne specialist, to return to the emergency department if symptoms worsen or persist or if there are any questions or concerns that arise at home. 07/19 16: Order name: Basic Metabolic Panel; Complete Time: 17:19 kb 07/19 16:27 Order name: CBC with Diff; Complete Time: 17:03 kb 07/19 16: Order name: Troponin HS; Complete Time: 17:19 kb 07/19 16: Order name: XRAY Chest (1 view); Complete Time: 17:36 kb 07/19 16:27 Order name: EKG; Complete Time: 16:27 kb 07/19 16:27 Order name: Cardiac monitoring; Complete Time: 17:25 kb 07/19 16:27 Order name: EKG - Nurse/Tech; Complete Time: 16:44 kb 07/19 16:27 Order name: IV Saline Lock; Complete Time: 17:25 kb 07/19 16:27 Order name: Labs collected and sent; Complete Time: 17:25 kb 07/19 16:27 Order name: O2 Per Protocol; Complete Time: 17:25 kb 07/19 16:27 Order name: O2 Sat Monitoring; Complete Time: 17:25 kb EC:51 Rate is 66 beats/min. Rhythm is regular. QRS [place] is Normal. [place] interval is normal at kb 154 msec. QRS interval is normal at 76 msec. QT interval is normal at 425 msec. Administered Medications: No medications were administered Disposition Summary: 07/19/23 17:41 Discharge Ordered Location: Home kb Condition: Stable kb Diagnosis - Cellulitis of chest wall - left breast kb Followup: kb - With: Emergency Department - When: As needed - Reason: Worsening of condition Followup: kb - With: Private Physician - When: 2 - 3 days - Reason: Recheck today's complaints, Continuance of care, Re-evaluation by your physician Discharge Instructions: - Discharge Summary Sheet kb - Cellulitis, Adult, Purf-en-Upst kb Forms: - Medication Reconciliation Form kb - Thank You Letter kb - Antibiotic Education kb - Prescription Opioid Use kb - Patient Portal Instructions kb - Leadership Thank You Letter kb Prescriptions: - Bactrim DS 800-160 mg Oral Tablet - take 1 tablet by ORAL route every 12 hours for 10 days; 20 tablet; Refills: 0, kb Product Selection Permitted Signatures: Dispatcher [employer] Hyacinth Rebolledo, MATHEUS BARAJAS-Katharine Reynolds, RN RN aa5
--- NOTE | 2023-07-19 17:42 | ER ---
Nurse's Notes [facility] Name: Liz Winkler Age: 37 yrs Sex: Female : 1985 Arrival Date: 07/19/2023 Time: 16:17 Bed 5 Private MD: Diagnosis: Cellulitis of chest wall-left breast Presentation: 07/19 16:23 Chief complaint: Patient states: chest pressure x 2 weeks ago and was admitted to the [facility], pt states "a few days ago I started having the chest pain again and now I have a rash on my chest". 16:23 Coronavirus screen: At this time, the client does not indicate any symptoms associated [facility] with coronavirus-19. Ebola Screen: Patient denies travel to an Ebola-affected area in the 21 days before illness onset. Initial Sepsis Screen: Does the patient meet any 2 criteria? No. Patient's initial sepsis screen is negative. Does the patient have a suspected source of infection? No. Patient's initial sepsis screen is negative. Risk Assessment: Do you want to hurt yourself or someone else? Patient reports no desire to harm self or others. Onset of symptoms was June 2023. 16:23 Acuity: DINO 3 aa5 16:23 Method Of Arrival: Ambulatory [facility] Historical: - Allergies: 16:24 PENICILLINS; aa5 - PMHx: 16:24 Anxiety; Cardiac Aneurism; depressive disorder; ectopic ; Hypertensive aa disorder; - PSHx: 16:24 tubal ligation; Tummy tuck; aa5 - Immunization history:: Adult Immunizations unknown. - Social history:: Smoking status: Reported history of juuling and/or vaping. Screenin:27 [facility] ED Fall Risk Assessment (Adult) History of falling in the last 3 months, ph including since admission No falls in past 3 months (0 pts) Confusion or Disorientation No (0 pts) Intoxicated or Sedated No (0 pts) Impaired Gait No (0 pts) Mobility Assist Device Used No (0 pt) Altered Elimination No (0 pt) Score/Fall Risk Level 0 - 2 = Low Risk Oriented to surroundings, Maintained a safe environment, Hourly rounding (assess needs \\T\\ fall precautionary measures) done. Abuse screen: Denies threats or abuse. Denies injuries from another. Nutritional screening: No deficits noted. Tuberculosis screening: No symptoms or risk factors identified. Assessment: 17:25 General: Appears in no apparent distress. comfortable, well groomed, Behavior is calm, ph cooperative, appropriate for age. Pain: Complains of pain in anterior aspect of left upper chest and left breast Pain does not radiate. Pain began weeks ago. Neuro: Level of Consciousness is awake, alert, obeys commands, Oriented to person, place, time, situation. Cardiovascular: Reports chest pain, shortness of breath, Rhythm is sinus rhythm Chest pain is located in left anterior chest wall began weeks ago episodes are intermittent. Derm: Skin is pink, warm \\T\\ dry. Vital Signs: 16:23 BP 157 / 98; Pulse 78; Resp 18 S; Temp 98.1(O); Pulse Ox 100% on R/A; Weight 77.11 kg aa5 (R); Height 5 ft. 2 in. (R); 17:28 BP 123 / 86; Pulse 70; Resp 14; Pulse Ox 100% on R/A; ph 16:23 Body Mass Index 31.09 (77.11 kg, 157.48 cm) aa5 Vitals: 17:28 Cardiac Rhythm Assessment Sinus rhythm. ph ED Course: 16:20 Patient arrived in ED. kj1 16:21 Hyacinth Angeles FNP-C is PHCP. kb 16:21 Juancarlos Toscano MD is Attending Physician. kb 16:23 Arm band placed on. aa5 16:24 Triage completed. aa5 16:37 Kim Mcmillan, RN is Primary Nurse. ph 16:44 EKG done, by ED staff. aw1 16:45 Initial lab(s) drawn, by tx, sent to lab. Inserted saline lock: 22 gauge in right ph antecubital area, using aseptic technique. Blood collected. Patient maintains SpO2 saturation greater than 95% on room air. 17:11 XRAY Chest (1 view) In Process Unspecified. EDMS 17:27 Patient has correct armband on for positive identification. Placed in gown. Bed in low ph position. Call light in reach. Client placed on continuous cardiac and pulse oximetry monitoring. NIBP monitoring applied. 17:27 No provider procedures requiring assistance completed. ph 17:55 IV discontinued, intact, bleeding controlled, No redness/swelling at site. Pressure ph dressing applied. Administered Medications: No medications were administered Medication: 17:27 VIS not applicable for this client. ph Outcome: 17:41 Discharge ordered by MD. devlin 17:53 Discharged to home ambulatory, with significant other. ph 17:53 Condition: good 17:53 Discharge instructions given to patient, significant other, Instructed on discharge instructions, follow up and referral plans. medication usage, Demonstrated understanding of instructions, follow-up care, medications, Prescriptions given X 1. 17:55 Patient left the ED. Signatures: Dispatcher [employer] EDHyacinth Domínguez, MATHEUS BARAJAS-Katharine Reynolds, RN RN aa5 Kim Mcmillan RN RN ph Karthik, Juana kj1 Deidra Marti aw1 Corrections: (The following items were deleted from the chart) 16:24 16:23 Chief complaint: Patient states: chest pressure x 2 weeks ago. aa5 aa5
[2023-07-19 18:30] VITALS: TEMP 98.1; O2SAT 100
[2023-07-19 18:40] VITALS: BP 123/86
--- NOTE | 2023-07-20 12:58 | EKG ---
Test Date: 2023-07-19 Test Time: 16:41:58 Manager Acquisition: SORAYA MEASUREMENT RESULTS: Intervals: Rate: 66 [place]: 154 QRSD: 76 QT: 406 QTc: 425 [place]: P: 24 KY: 154 QRS: 32 T: 30 INTERPRETIVE STATEMENTS: Normal sinus rhythm Normal ECG Compared to ECG 07/07/2023 21:02:30 Sinus tachycardia no longer present Myocardial infarct finding no longer present Electronically Signed On 07-20-23 12:55:58 CDT by Emery Christina
== END 2023-07-19 17:55 | disposition home or self-care (01) ==
LOC: ER 16:17
DX: L03.313 Cellulitis of chest wall (principal); N61.0 Mastitis without abscess
CPT/HCPCS: 36415; 71045; 80048; 84484; 85025; 93005; 99284

== ENCOUNTER 2024-09-22 10:34 | Emergency (ER) | payer OTHER, SELFPAY ==
--- OUTSIDE RECORDS SUMMARY | 2024-09-22 10:37 | XMS REPORT | Continuity of Care Document ---
Author Name Unknown Address [address] [facility] [address] [place] [address] [facility] Address [address] [facility] [address] [place] [address] Care Team Providers Care Therapeutic Strategy Lead Name Role Phone Jasmine Loera Primary Care Physician [phone] Allergies, Adverse Reactions, Alerts Allergy Name Allergy Type Status Severity Reaction(s) Onset Date Inactive Date Treating Clinician Comments Source Penicill in V Pete m - Oral Propensi ty to adverse reaction to drug Active 06-24 00:00: 00 Penicill ins Propensi ty to adverse reaction to drug Active 16 00:00: 00 Medications Ordered Medication Name Filled Medication Name Start Date Stop Date Current Medication? Ordering Clinician Indication Dosage Frequency Signature (SIG) Comments Components Source TAKE 1 TABLET BY MOUTH ONCE DAILY 18 00:00: 00 No losartan 100 mg tablet 3-11 00:00: 00 No 1mg metoprolol succinate ER 25 mg tablet,exte nded release 24 hr 3-11 00:00: 00 No 1mg phentermine 37.5 mg capsule 3-11 00:00: 00 No 1mg Dose Unknown 3-11 00:00: 00 No Dose Unknown 3-11 00:00: 00 No losartan 100 mg tablet 2020-11 2- 00:00: 00 No 1mg losartan 100 mg tablet 08-18 00:00: 00 No 1mg metoprolol succinate ER 25 mg tablet,exte nded release 24 hr - 00:00: 00 No 1mg escitalopra m 10 mg tablet 08-18 00:00: 00 No 1mg famotidine 40 mg tablet - 00:00: 00 No 1mg hydroxyzine HCl 25 mg tablet 9- 00:00: 00 No 1mg losartan 100 mg tablet 07-24 00:00: 00 No 1mg metoprolol succinate ER 25 mg tablet,exte nded release 24 hr - 00:00: 00 No 1mg losartan 100 mg tablet 5- 00:00: 00 No 1mg metoprolol succinate ER 25 mg tablet,exte nded release 24 hr 03-31 00:00: 00 No 1mg escitalopra m 10 mg tablet 5 00:00: 00 No 1mg hydroxyzine HCl 25 mg tablet 5- 00:00: 00 No 1mg metoprolol succinate ER 25 mg tablet,exte nded release 24 hr 02-17 00:00: 00 No 1mg losartan 100 mg tablet 02-17 00:00: 00 No 1mg prednisone 20 mg tablet 02-17 00:00: 00 No 1mg meloxicam 7.5 mg tablet 02-17 00:00: 00 No 1mg cyclobenzap rine 5 mg tablet 02-17 00:00: 00 No 12mg ProAir HFA 90 mcg/actuati on aerosol inhaler 13 00:00: 00 No 12mcg/a ctuatio n Flexeril 5 mg tablet 02-10 00:00: 00 No 1mg Flexeril 5 mg tablet 16 00:00: 00 No 1mg ibuprofen 600 mg tablet 16 00:00: 00 No 1mg ibuprofen 600 mg tablet 16 00:00: 00 No 1mg Vital Signs Vital Name Observation Time Observation Value Comments S ouredwige BP Systolic 2022-11-26 16:26:00 152 mm[Hg] BP [...] /min Respiratory Rate 2021-03-31 09:37:00 16.00 /min Heart Rate 2021-02-17 11:38:00 84.00 /min Respiratory Rate 2021-02-17 11:38:00 16.00 /min BP Systolic 2021-02-17 11:38:00 153 mm[Hg] BP Diastolic 2021-02-17 11:38:00 103 mm[Hg] Weight Measured 2021-02-17 11:38:00 175.20 pounds Height Measured 2021-02-17 11:38:00 63.50 inches Body Temperature 2021-02-17 11:38:00 98.80 degrees BP Systolic 2015-02-10 15:00:00 128 mm[Hg] BP [...] inches Body Temperature 2015-02-10 14:55:00 98.40 degrees Plan of Care Planned Activity Planned Date Details Comments Source Goal Plan of Care Note [code = 43997-5] Goal Plan of Care Note [code = 67873-7] Goal Plan of Care Note [code = 08416-5] Goal Plan of Care Note [code = 14646-0] Goal Plan of Care Note [code = 09886-4] Goal Plan of Care Note [code = 56528-5] Goal Plan of Care Note [code = 71642-2] Goal Plan of Care Note [code = 88646-4] Goal Plan of Care Note [code = 25522-1] Goal Plan of Care Note [code = 25308-9] Goal Plan of Care Note [code = 72935-6] Goal Plan of Care Note [code = 66830-1] Goal Plan of Care Note [code = 65075-7] Goal Plan of Care Note [code = 65834-2] Encounters Start Date/Time End Date/Time Encounter Type Admission Type Attending [facility] Care Facility Care Department Encounter ID Source 2024-07-23 09:10:38 2024-07-23 09:10:38 Outpatient [facility] [id number] Jd Handley 2023-05-05 10:06:40 2023-05-05 10:06:40 Outpatient [facility] [id number] Jd Handley 2023-03-24 15:42:02 2023-03-24 15:42:02 Outpatient [facility] [id number] Jd Handley 2022-12-23 15:17:27 2022-12-23 15:17:27 Outpatient [facility] [id number] Jd Handley 2022-11-26 16:19:43 2022-11-26 16:19:43 Outpatient [facility] [id number] Jd Handley 2022-11-26 00:00:00 2022-11-26 00:00:00 Outpatient Visit [id number] 2022-08-27 00:00:00 2022-08-27 00:00:00 Outpatient Visit [id number] Results Test Description Test Time Test Comments Results Result Co mments Source CT/NG, NAAT, [id number] 16:02:42* Test Item Value Reference Range Interpretation Comme nts CHLAMYDIA, NAAT, THINPREP (test code = 48613) NEGATIVE NEGATIVE A negative resul t does not exclude low level infection, specimensampling error, or collection error. Testing is performed with the [employer] 6800/8800 systems usingreal-time Polymerase Chain Reaction (PCR) method. GONORRHEA, NAAT, THINPREP (test code = 67853) NEGATIVE NEGATIVE A negative resul t does not exclude low level infection, specimensampling error, or collection error. Testing is performed with the [employer] 6800/8800 systems usingreal-time Polymerase Chain Reaction (PCR) method. HPV HIGH RISK WITH GENOTYPE, [id number] 14:10:39* Test Item Value Reference Range Interpretation Comme nts HPV HIGH RISK INTERP (test code = 23473) NEGATIVE NEGATIVE HPV 16 (test code = 95202) NEGATIVE HPV 18 (test code = 82686) NEGATIVE HPV, HR, OTHER GENOTYPES (test code = 78633) NEGATIVE Testing methodol ogy is real-time PCR utilizing hydrolysis probes with the [employer] 4800 system. The test individually detects genotypes 16 and 18, as well as the other 12 high risk types (31,33,35,39,45,51,52,56 ,58,59,66,68). The expected result is negative. A negative result does not rule out the presence of HPV not included in the genotype set, a low level of infection or specimen sampling error. UNLESS OTHERWISE INDICATED, ALL TESTING PERFORMED [facility] [employer], [facility]. [address] [place] [id number] SUBSCRIPTION CREW LEADER: NATACHA SWEENEY M.D. CLIA NUMBER [id number] [facility] [place] [place]. [id number] COMPREHENSIVE METABOLIC [id number] 01:51:37* Test Item Value Reference Range Interpretation Comme nts GLUCOSE (test code = 2217) 99 MG/DL 70-99 BUN (test code = 2208) 13 MG/DL 6-20 CREATININE (test code = 2214) 0.76 MG/DL 0.60-1.30 eGFR (2020 CKD-EPI) (test code = 79278) 103 ML/MIN/1.73 >60 CALC BUN/CREAT (test code = 2235) 17 RATIO 6-28 SODIUM (test code = 2231) 141 MEQ/L 133-146 POTASSIUM (test code = 2228) 4.4 MEQ/L 3.5-5.4 CHLORIDE (test code = 2215) 102 MEQ/L 95-107 CARBON DIOXIDE (test code = 2206) 25 MEQ/L 19-31 CALCIUM (test code = 2209) 9.3 MG/DL 8.5-10.5 PROTEIN, TOTAL (test code = 222) 7.4 G/DL 6.1-8.3 ALBUMIN (test code = 2201) 4.5 G/DL 3.5-5.2 CALC GLOBULIN (test code = 2240) 2.9 G/DL 1.9-3.7 CALC A/G RATIO (test code = 2234) 1.6 RATIO 1.0-2.6 BILIRUBIN, TOTAL (test code = 2207) 0.3 MG/DL See_Comment [Automated me ssage] The system which generated this result transmitted reference range: <=1.2. The reference range was not used to interpret this result as normal/abnormal. ALKALINE PHOSPHATASE (test code = 2204) 87 U/L 40-112 AST (test code = 2218) 12 U/L 9-40 ALT (test code = 2219) 13 U/L 5-40 LIPID [id number] 01:51:37* Test Item Value Reference Range Interpretation Comme nts CHOLESTEROL (test code = 2210) 188 MG/DL <200 TRIGLYCERIDES (test code = 2232) 201 MG/DL <150 H HDL CHOLESTEROL (test code = 2220) 38 MG/DL >39 L CALC LDL CHOL (test code = 2237) 118 MG/DL <100 H NOTE: CALCULATED LDL IS BASED ON KIEL-HADLEY METHOD WHICHINCLUDES ADJUSTABLE TRIGLYCERIDE:VLDL CHOLESTEROL RATIO.THIS FACTOR VARIES BY MEASURED TRIGLYCERIDE AND NON-HDLCHOLESTEROL CONCENTRATIONS WITH INCREASED CALCULATED LDL SEENIN HIGHER TRIGLYCERIDE OR LOWER NON-HDL SPECIMENS. FOR MOREINFORMATION, SEE CLIENT ANNOUNCEMENT AT [email or web address] /[email or web address] RISK RATIO LDL/HDL (test code = 2238) 3.11 RATIO <3.22 UNLESS OTHERW ISE INDICATED, ALL TESTING PERFORMED [facility] [address] [place] [address] SUBSCRIPTION CREW LEADER: NATACHA SWEENEY M.D. [place] NUMBER [id number] [facility] [place] [place]. [id number] SARS-CoV-2 (COVID-19) by RT-PCR (HIGH RISK)2020-06-19 00:00:00* Test Item Value Reference Range Interpretation Comme nts SARS-CoV-2 INTERPRETATION (t est code = 46792) POSITIVE SOURCE (test code = 26956) NOT SPECIFIED SARS-CoV-2 (COVID-19) by RT-PCR (HIGH RISK)2020-06-19 00:00:00* Test Item Value Reference Range Interpretation Comme nts SARS-CoV-2 INTERPRETATION (t est code = 43449) POSITIVE SOURCE (test code = 77628) NOT SPECIFIED SARS-CoV-2 (COVID-19) by RT-PCR (HIGH RISK)2020-06-04 00:00:00* Test Item Value Reference Range Interpretation Comme nts SARS-CoV-2 INTERPRETATION (t est code = 33607) POSITIVE SOURCE (test code = 78388) NOT SPECIFIED SARS-CoV-2 (COVID-19) by RT-PCR (HIGH RISK)2020-06-04 00:00:00* Test Item Value Reference Range Interpretation Comme nts SARS-CoV-2 INTERPRETATION (t est code = 52496) POSITIVE SOURCE (test code = 64342) NOT SPECIFIED
[2024-09-22] MEDS ORDERED: FAMOTIDINE 20 MG/2 ML VIAL IV ONE (11:00)
[2024-09-22] MEDS ORDERED: MORPHINE 4 MG/ML SYR ONE (11:00)
[2024-09-22] MEDS ORDERED: NA CHLORIDE 0.9% 1,000 ML ONE (11:00)
[2024-09-22] MEDS ORDERED: ONDANSETRON 4 MG/2 ML VIAL ONE (11:00)
[2024-09-22 11:15] LABS: Specific Gravity 1.022 (1.005-1.030); Urine Bilirubin NEGATIVE (Negative); Urine Blood Negative (Negative); Urine Clarity Clear (Clear); Urine Color Light-Yellow (Yellow); Urine Glucose NEGATIVE (Negative); Urine Ketones NEGATIVE (Negative); Urine Microscopic Reflex YN NO UMIC; Urine Nitrite NEGATIVE (Negative); Urine Protein NEGATIVE (Negative); Urine Urobilinogen Normal (Normal); Urine pH 5.5 (5.0-7.0)
[2024-09-22 11:17] LABS: Specific Gravity 1.022 (1.005-1.030)
[2024-09-22 11:18] LABS: Absolute Basophils 0.1 K/uL (0-0.5); Absolute Eosinophils 0.1 K/uL (0-0.5); Absolute Lymphocytes (CBC) 1.6 K/uL (0.7-4.9); Absolute Monocytes 0.4 K/uL (0.1-1.3); Absolute Neutrophil 4.7 K/uL (1.8-8.0); Basophils % 0.7 % (0-1.3); Eosinophils % 2.1 % (0-4.4); Hematocrit 39.5 % (36.0-45.0); Lymphocytes % 23.3 % (15.3-44.8); MCHC 32.9 g/dL (32.0-36.0); MPV 7.3 fL (7.6-11.3); Neutrophils % 67.9 % (41.7-73.7); Platelets 359 thou/uL (152-406); RBC Red Blood Cell Count 4.81 M/uL (3.86-4.86); Red Cell Distribution Width 14.7 % (12.1-15.2)
[2024-09-22 11:31] LABS: Albumin 3.8 g/dL (3.4-5.0); Albumin/Globulin Ratio 0.9 (1.1-1.8); Anion Gap 7.9 mEq/L (5.0-15.0); Bilirubin Total 0.5 mg/dL (0.2-1.0); Globulin 4.3 g/dL (2.3-3.5); Potassium 3.9 mEq/L (3.5-5.1); Protein, Total 8.1 g/dL (6.4-8.2)
[2024-09-22] MEDS ORDERED: METRONIDAZOLE 500mg IVPB 500 MG/100 ML BAG IV ONE (12:05)
--- NOTE | 2024-09-22 12:16 | RAD REPORT ---
EXAMINATION: CT Abdomen Pelvis W Contrast CLINICAL INDICATION: Female, 39 years old. ABD PAIN TECHNIQUE: CT abdomen and pelvis was performed, after the administration of IV contrast, as per depar count [facility]. Axial, sagittal and coronal reconstructions were obtained. One or more of the following dose reduction techniques were used: Automated exposure control, adjustment of the mA and k V according to patient size, and iterative reconstruction. Unless otherwise specified, incidental findings do not require dedicated imaging follow-up. COMPARISON: 09/11/2014 FINDINGS: LOWER CHEST: The visualized lung bases are clear. LIVER: Normal in size and contour. No focal lesion. BILIARY SYSTEM: No suspicious abnormalities. SPLEEN: Normal size. No focal lesion. Small splenule is noted. PANCREAS: No mass, ductal dilation, or nia-pancreatic fluid. ADRENALS: Normal; no mass. KIDNEYS: Normal size and contour. No hydronephrosis. URINARY BLADDER: Decompressed, limiting evaluation. GASTROINTESTINAL TRACT: Diverticulosis along the descending and sigmoid colon. Focal wall thickening and adjacent fat stranding along an inflamed mid descending colon diverticulum projecting anteriorly. No abnormal fluid collections or extraluminal gas. No evidence of free air, significant i ntra-abdominal free fluid, bowel obstruction or abscess. APPENDIX: Normal appendix. LYMPH NODES: No lymphadenopathy. MUSCULOSKELETAL: No acute or suspicious osseous abnormality. ADDITIONAL FINDINGS: Uterus is retroflexed.. IMPRESSION: Findings of acute uncomplicated mid descending sigmoid diverticulitis.
[2024-09-22] MEDS ORDERED: Ciprofloxacin 200mg IV 400 MG/200 ML IV.SOLN. IV ONE (12:17)
--- NOTE | 2024-09-22 12:24 | ER ---
Nurse's Notes [facility] Name: Liz Winkler Age: 39 yrs Sex: Female : 1985 Arrival Date: 09/22/2024 Time: 10:34 Bed 8 Private MD: Diagnosis: Abdominal pain, unspecified;Diverticulitis of large intestine without perforation or abscess without bleeding-MILD SIGMOID Presentation: 09/22 10:59 Chief complaint: Patient states: Mid-abdominal pain that started a few days ago, now ph has pain to L flank and LLQ, also reports bloating and chills, denies N/V/D or urinary symptoms. Coronavirus screen: Vaccine status: Patient reports receiving the 1st dose of the Covid vaccine. Ebola Screen: No symptoms or risks identified at this time. Initial Sepsis Screen: Does the patient meet any 2 criteria? No. Patient's initial sepsis screen is negative. Does the patient have a suspected source of infection? No. Patient's initial sepsis screen is negative. Risk Assessment: Do you want to hurt yourself or someone else? Patient reports no desire to harm self or others. Onset of symptoms was September 22, 2024. 10:59 Method Of Arrival: Ambulatory ph 10:59 Acuity: DINO 3 ph Triage Assessment: 11:02 General: Appears in no apparent distress. Behavior is calm, cooperative, Reports chills ph for. Pain: Complains of pain in umbilical area, posterior aspect of left lateral abdomen, anterior aspect of left lateral abdomen and left lower quadrant. Neuro: Level of Consciousness is awake, alert, obeys commands, Oriented to person, place, time, situation. Cardiovascular: Capillary refill < 3 seconds in bilateral fingers Patient's skin is warm and dry. Respiratory: Airway is patent Respiratory effort is even, unlabored, Respiratory pattern is regular, symmetrical. GI: Reports lower abdominal pain, bloating, Patient currently denies diarrhea, nausea, vomiting. : Denies burning with urination, urinary frequency. Derm: Skin is pink, warm \T\ dry. Historical: - Allergies: 10:48 PENICILLINS; ph - PMHx: 10:48 Anxiety; Cardiac Aneurism; depressive disorder; ectopic ; Hypertensive ph disorder; - PSHx: 10:48 tubal ligation; Tummy tuck; ph - Immunization history:: Adult Immunizations unknown. - Infectious Disease History:: Denies. - Social history:: Smoking status: unknown. Screenin:48 [facility] ED Fall Risk Assessment (Adult) History of falling in the last 3 months, ph including since admission No falls in past 3 months (0 pts) Confusion or Disorientation No (0 pts) Intoxicated or Sedated No (0 pts) Impaired Gait No (0 pts) Mobility Assist Device Used No (0 pt) Altered Elimination No (0 pt) Score/Fall Risk Level 0 - 2 = Low Risk Oriented to surroundings, Maintained a safe environment, Hourly rounding (assess needs \T\ fall precautionary measures) done. Abuse screen: Denies threats or abuse. Denies injuries from another. Nutritional screening: No deficits noted. Tuberculosis screening: No symptoms or risk factors identified. Assessment: 11:03 General: SEE TRIAGE ASSESSMENT. ph 12:31 Reassessment: Patient appears in no apparent distress at this time. Patient and/or ph family updated on plan of care and expected duration. Pain level reassessed. Patient is alert, oriented x 3, equal unlabored respirations, skin warm/dry/pink. D/C pending completion of IV antibiotics. 12:47 Reassessment: D/C ON HOLD FOR IV ABX. bp 13:27 GI: Bowel sounds present X 4 quads. Abd is soft and non tender X 4 quads. bp Vital Signs: 10:59 BP 145 / 102; Pulse 67; Resp 18; Temp 97.5; Pulse Ox 99% on R/A; Weight 77.11 kg; ph Height 5 ft. 2 in. ; 12:29 BP 148 / 92; Pulse 58; Resp 18; Pulse Ox 98% on R/A; ph 13:25 BP 151 / 95; Pulse 58; Resp 16; Pulse Ox 100% ; bp 10:59 Body Mass Index 31.09 (77.11 kg, 157.48 cm) ph ED Course: 10:44 Patient arrived in ED. sj2 10:46 Alfred Garg, GURPREET is Primary Nurse. bp 10:46 Primary Nurse role handed off by Alfred Garg, RN ph 10:46 Kim Mcmillan, RN is Primary Nurse. ph 10:47 Juancarlos Toscano MD is Attending Physician. laurence 10:49 Patient has correct armband on for positive identification. Bed in low position. Call ph light in reach. Pulse ox on. NIBP on. 10:59 Test, Urine Sent. ph 10:59 Urinalysis w/ reflexes Sent. ph 11:02 Triage completed. ph 11:02 Arm band placed on Patient placed in an exam room, on a stretcher, on pulse oximetry. ph 11:12 Initial lab(s) drawn, by me, sent to lab. Urine collected: clean catch specimen. ph Inserted saline lock: 20 gauge in right antecubital area, using aseptic technique. Blood collected. Flushed with 10 mL NS. 11:53 CT Abd/Pelvis - IV Contrast Only In Process Unspecified. EDMS 12:23 Manpreet Jackson MD is Referral Physician. laurence 12:31 No provider procedures requiring assistance completed. ph 13:26 IV discontinued, intact, bleeding controlled, No redness/swelling at site. Pressure bp dressing applied. 13:27 Provided Education on: N/A. bp Administered Medications: 11:12 Drug: Famotidine IVP 20 mg IVP once; dilute with 10 mL 0.9% NaCl; give over 2 minutes bp Route: IVP; Site: right antecubital; 12:30 Follow up: Response: No adverse reaction ph 11:12 Drug: Ondansetron IVP 4 mg IVP once; over 2 minutes Route: IVP; Site: right antecubital;bp 12:30 Follow up: Response: No adverse reaction ph 11:12 Drug: morphine IVP or IV 4 mg IVP once over 4 mins Route: IVP; Infused Over: 4 mins; bp Site: right antecubital; 12:29 Follow up: Response: No adverse reaction ph 11:12 Drug: NS 0.9% IV 1000 ml IV at 1 bolus Per protocol; to be given as a bolus over 60 bp minutes Route: IV; Rate: 1 bolus; Site: right antecubital; 13:27 Follow up: IV Status: Completed infusion bp 12:29 Drug: Ciprofloxacin IVPB 400 mg 200 ml IVPB once over 60 mins Volume: 200 ml; Route: ph IVPB; Infused Over: 60 mins; Site: right antecubital; 13:27 Follow up: IV Status: Completed infusion bp 12:52 Drug: metroNIDAZOLE IVPB 500 mg 100 ml IVPB at 200 ml/hr once over 30 mins Volume: 100 ph ml; Route: IVPB; Rate: 200 ml/hr; Infused Over: 30 mins; Site: right antecubital; 13:27 Follow up: IV Status: Completed infusion; IV Intake: 100ml bp 12:53 Drug: Rocephin IV 2 grams IV at per protocol once; Given slow IV push per pharmarcy ph instructions Route: IV; Rate: per protocol; Site: right antecubital; 13:26 Follow up: IV Status: Completed infusion; IV Intake: 100ml bp Medication: 10:49 VIS not applicable for this client. ph Intake: 13:26 IV: 100ml; Total: 100ml. bp 13:27 IV: 100ml; Total: 200ml. bp Outcome: 12:24 Discharge ordered by . laurence 13:26 Discharged to home ambulatory, bp 13:26 Condition: stable 13:26 Discharge instructions given to patient, Instructed on discharge instructions, follow up and referral plans. medication usage, Demonstrated understanding of instructions, follow-up care, medications, Prescriptions given X 4, 13:28 Patient left the ED. bp Signatures: Dispatcher [employer] EDMS Juancarlos Toscano MD MD cha Hall, Patricia, RN RN Alfred Garg, RN RN bp Sen Pierce sj2
--- NOTE | 2024-09-22 12:24 | EDPHYS ---
Physician Documentation [facility] Name: Liz Winkler Age: 39 yrs Sex: Female : 1985 Arrival Date: 09/22/2024 Time: 10:34 Bed 8 Private MD: ED Physician Juancarlos Toscano HPI: 09/22 11:54 This 39 yrs old Female presents to ER via Ambulatory with complaints of laurence Abdominal Pain, Fever. 11:54 The patient reports fever, that was measured at 100 degrees Fahrenheit. Onset: The laurence symptoms/episode began/occurred yesterday. Modifying factors: there are no obvious modifying factors. Associated signs and symptoms: Pertinent positives: abdominal pain, nausea. Severity of symptoms: At their worst the symptoms were moderate in the emergency department the symptoms are unchanged. The patient has not experienced similar symptoms in the past. Historical: - Allergies: 10:48 PENICILLINS; ph - PMHx: 10:48 Anxiety; Cardiac Aneurism; depressive disorder; ectopic ; Hypertensive ph disorder; - PSHx: 10:48 tubal ligation; Tummy tuck; ph - Immunization history:: Adult Immunizations unknown. - Infectious Disease History:: Denies. - Social history:: Smoking status: unknown. ROS: 11:56 Constitutional: Negative for fever, chills, and weight loss, Eyes: Negative for injury, laurence pain, redness, and discharge, ENT: Negative for injury, pain, and discharge, Neck: Negative for injury, pain, and swelling, Cardiovascular: Negative for chest pain, palpitations, and edema, Respiratory: Negative for shortness of breath, cough, wheezing, and pleuritic chest pain, Back: Negative for injury and pain, : Negative for injury, bleeding, discharge, and swelling, MS/Extremity: Negative for injury and deformity, Skin: Negative for injury, rash, and discoloration, Neuro: Negative for headache, weakness, numbness, tingling, and seizure, Psych: Negative for depression, anxiety, suicide ideation, homicidal ideation, and hallucinations, Allergy/Immunology: Negative for hives, rash, and allergies, Endocrine: Negative for neck swelling, polydipsia, polyuria, polyphagia, and marked weight changes, Hematologic/Lymphatic: Negative for swollen nodes, abnormal bleeding, and unusual bruising, 11:56 Abdomen/GI: Positive for abdominal pain, nausea, of the posterior aspect of left lateral abdomen, anterior aspect of left lateral abdomen, left upper quadrant and left lower quadrant, Exam: 11:56 Constitutional: This is a well developed, well nourished patient who is awake, alert, laurence and in no acute distress. Head/Face: Normocephalic, atraumatic. Eyes: Pupils equal round and reactive to light, extra-ocular motions intact. Lids and lashes normal. Conjunctiva and sclera are non-icteric and not injected. Cornea within normal limits. Periorbital areas with no swelling, redness, or edema. ENT: Nares patent. No nasal discharge, no septal abnormalities noted. Tympanic membranes are normal and external auditory canals are clear. Oropharynx with no redness, swelling, or masses, exudates, or evidence of obstruction, uvula midline. Mucous membranes moist. Neck: Trachea midline, no thyromegaly or masses palpated, and no cervical lymphadenopathy. Supple, full range of motion without nuchal rigidity, or vertebral point tenderness. No Meningismus. Chest/axilla: Normal chest wall appearance and motion. Nontender with no deformity. No lesions are appreciated. Cardiovascular: Regular rate and rhythm with a normal S1 and S2. No gallops, murmurs, or rubs. Normal PMI, no JVD. No pulse deficits. Respiratory: Lungs have equal breath sounds bilaterally, clear to auscultation and percussion. No rales, rhonchi or wheezes noted. No increased work of breathing, no retractions or nasal flaring. Back: No spinal tenderness. No costovertebral tenderness. Full range of motion. Skin: Warm, dry with normal turgor. Normal color with no rashes, no lesions, and no evidence of cellulitis. MS/ Extremity: Pulses equal, no cyanosis. Neurovascular intact. Full, normal range of motion. Neuro: Awake and alert, GCS 15, oriented to person, place, time, and situation. Cranial nerves II-XII grossly intact. Motor strength 5/5 in all extremities. Sensory grossly intact. Cerebellar exam normal. Normal gait. Psych: Awake, alert, with orientation to person, place and time. Behavior, mood, and affect are within normal limits. 11:56 Abdomen/GI: Inspection: abdomen appears normal, Bowel sounds: normal, Palpation: mild abdominal tenderness, moderate abdominal tenderness, in the posterior aspect of left lateral abdomen, anterior aspect of left lateral abdomen, left upper quadrant and left lower quadrant, Vital Signs: 10:59 BP 145 / 102; Pulse 67; Resp 18; Temp 97.5; Pulse Ox 99% on R/A; Weight 77.11 kg; ph Height 5 ft. 2 in. ; 12:29 BP 148 / 92; Pulse 58; Resp 18; Pulse Ox 98% on R/A; ph 13:25 BP 151 / 95; Pulse 58; Resp 16; Pulse Ox 100% ; bp 10:59 Body Mass Index 31.09 (77.11 kg, 157.48 cm) ph MDM: 10:47 Medical Screening Exam initiated laurence 11:57 Differential diagnosis: viral Infection, bacterial infection, URI, bowel obstruction, laurence Cholelithiasis, diverticulitis, gastritis, gastroesophageal reflux disease, Hepatitis. Data reviewed: vital signs, nurses notes, lab test result(s), radiologic studies, CT scan. Consideration of Admission/Observation Escalation of care including admission/observation considered. I considered the following discharge prescriptions or medication management in the emergency department Medications were administered in the Emergency Department. See MAR. Independent interpretation of the following test(s) in the Emergency Department CT Scan: My interpretation is CT ABD/ PEL. Historians other than the Patient: PT WELL INFORMED. Care significantly affected by the following chronic conditions: Hypertension, Obesity, DEPRESSION, CARDIAC ANEURYSM. Counseling: I had a detailed discussion with the patient and/or guardian regarding the historical points, exam findings, and any diagnostic results supporting the discharge/admit diagnosis, lab results, radiology results. 09/22 10:48 Order name: CBC with Diff; Complete Time: 11:53 [facility] 09/22 10:48 Order name: CMP; Complete Time: 11:53 [facility] 09/22 10:48 Order name: Lipase; Complete Time: 11:53 [facility] 09/22 10:48 Order name: Test, Urine; Complete Time: 11:53 [facility] 09/22 10:48 Order name: Urinalysis w/ reflexes; Complete Time: 11:53 [facility] 09/22 10:48 Order name: CT Abd/Pelvis - IV Contrast Only; Complete Time: 12:21 [facility] 09/22 10:48 Order name: IV Saline Lock; Complete Time: 11:12 [facility] 09/22 10:48 Order name: Labs collected and sent; Complete Time: 11:12 laurence Administered Medications: 11:12 Drug: Famotidine IVP 20 mg IVP once; dilute with 10 mL 0.9% NaCl; give over 2 minutes bp Route: IVP; Site: right antecubital; 12:30 Follow up: Response: No adverse reaction ph 11:12 Drug: Ondansetron IVP 4 mg IVP once; over 2 minutes Route: IVP; Site: right antecubital;bp 12:30 Follow up: Response: No adverse reaction ph 11:12 Drug: morphine IVP or IV 4 mg IVP once over 4 mins Route: IVP; Infused Over: 4 mins; bp Site: right antecubital; 12:29 Follow up: Response: No adverse reaction ph 11:12 Drug: NS 0.9% IV 1000 ml IV at 1 bolus Per protocol; to be given as a bolus over 60 bp minutes Route: IV; Rate: 1 bolus; Site: right antecubital; 13:27 Follow up: IV Status: Completed infusion bp 12:29 Drug: Ciprofloxacin IVPB 400 mg 200 ml IVPB once over 60 mins Volume: 200 ml; Route: ph IVPB; Infused Over: 60 mins; Site: right antecubital; 13:27 Follow up: IV Status: Completed infusion bp 12:52 Drug: metroNIDAZOLE IVPB 500 mg 100 ml IVPB at 200 ml/hr once over 30 mins Volume: 100 ph ml; Route: IVPB; Rate: 200 ml/hr; Infused Over: 30 mins; Site: right antecubital; 13:27 Follow up: IV Status: Completed infusion; IV Intake: 100ml bp 12:53 Drug: Rocephin IV 2 grams IV at per protocol once; Given slow IV push per pharmarcy ph instructions Route: IV; Rate: per protocol; Site: right antecubital; 13:26 Follow up: IV Status: Completed infusion; IV Intake: 100ml bp Disposition Summary: 09/22/24 12:24 Discharge Ordered Notes: Location: Home laurence Problem: new laurence Symptoms: have improved laurence Condition: Stable laurence Diagnosis - Abdominal pain, unspecified laurence - Diverticulitis of large intestine without perforation or abscess without bleeding - laurence MILD SIGMOID Followup: laurence - With: Private Physician - When: 2 - 3 days - Reason: Recheck today's complaints, Continuance of care, Re-evaluation by your physician Followup: laurence - With: Manpreet Jackson MD - When: 2 - 3 days - Reason: Recheck today's complaints, Re-evaluation by your physician Discharge Instructions: - Discharge Summary Sheet laurence - Abdominal Pain, Adult laurence - Diverticulitis laurence - Diverticulitis, [id number] Forms: - Medication Reconciliation Form laurence - Antibiotic Education laurence - Prescription Opioid Use laurence - Patient Portal Instructions [facility] - Leadership Thank You Letter laurence - Work release form Prescriptions: - ondansetron 4 mg Oral Tablet,disintegrating - take 1 tablet ORAL route every 8 hours for 5 days PRN NAUSEA; 20 tablet; laurence Refills: 0, Product Selection Permitted - Colace 100 mg Oral Tablet - take 1 tablet ORAL route every 12 hours; 14 tablet; Refills: 0, Product [facility] Selection Permitted - Flagyl 500 mg Oral Tablet - take 1 tablet ORAL route every 6 hours for 10 days; 40 tablet; Refills: 0, [facility] Product Selection Permitted - Cipro 500 mg Oral tablet - take 1 tablet ORAL route every 12 hours for 10 days; 20 tablet; Refills: 0, [facility] Product Selection Permitted - dicyclomine 20 mg Oral tablet - take 1 tablet ORAL route 4 times per day; 28 tablet; Refills: 0, Product [facility] Selection Permitted Signatures: Dispatcher [employer] Juancarlos Browne MD MD cha Hall, Patricia, RN RN Alfred Rodas, RN RN
[2024-09-22] MEDS ORDERED: CEFTRIAXONE 2000 MG/VIAL ONE (12:39)
[2024-09-22] MEDS ORDERED: NA CHLORIDE 0.9% 50 ML ONE (12:39)
[2024-09-22 22:26] VITALS: TEMP 97.5
[2024-09-22 22:42] VITALS: BP 151/95; O2SAT 100
== END 2024-09-22 13:28 | disposition home or self-care (01) ==
LOC: ER 10:34
DX: K57.32 Diverticulitis of large intestine without perforation or abscess without bleeding (principal)
CPT/HCPCS: 85025; 36415; 81025; 81003; 83690; 80053; 74177; Q9967; J0744; J2405; J0696; J7030; 96361; 96365; 96367; 96375; 99284